=== PATIENT | male | born 1975 | race Caucasian/White ===

== ENCOUNTER 2021-05-27 11:38 | Inpatient (IN) ==
[2021-05-27] MEDS ORDERED: LIDO/EPINEPHRINE/SOD BICARB 20 ML VIAL INFIL ONE (12:09)
--- NOTE | 2021-05-27 12:21 | Emergency Department Note ---
Impression & Plan Cellulitis and abscess of buttock ED Provider Note NAME: ALINA [id number] JOSELYN AGE: 46 SEX: M : 1975 ARRIVES VIA: Walk-In INFORMANT: Patient, ED PROVIDER(S): Manuel Koroma DO CHIEF COMPLAINT: Abscess HPI: The patient is a 46-year-old male who presented to the emergency department for an evaluation of abscess. The patient has bilateral gluteal abscesses. He was seen [facility]. He was started on antibiotics. No attempts were made for incision and drainage although this is unclear why. The patient states that his pain is moderate to severe. He was started on Bactrim without relief. He notices drainage from the right gluteal abscess and minimal drainage from the left iliopsoas. He has had no rectal bleeding or pain. He denies having any abdominal pain nausea or vomiting. ROS: See above HPI for pertinent positives & negatives. A total of 10 systems reviewed and were otherwise negative. PAST MEDICAL HISTORY: See Below PAST SURGICAL HISTORY: See Below FAMILY HISTORY: See Below SOCIAL HISTORY: See Below HOME MEDICATIONS: See Below ALLERGIES: See Below VITALS: See Below PHYSICAL EXAMINATION: GENERAL: Patient is awake alert in no acute distress patient is resting comfortably and showing no signs of anxiety EYES: The conjunctivae are clear. The pupils are round and reactive. EARS, NOSE, MOUTH AND THROAT: The nose is without any evidence of any deformity. NECK: The neck is nontender and supple. RESPIRATORY: Normal respiratory effort is noted there is no evidence of wheezing rhonchi or rales CARDIOVASCULAR: Regular rate and rhythm noted there no murmurs rubs or gallops normal S1 normal S2. GASTROINTESTINAL: The abdomen is soft. Abdomen is nontender. MUSCULOSKELETAL/EXTREMITIES: There is no evidence of gross deformity full range of motion is noted in the hips and shoulders. SKIN: There was bilateral gluteal abscesses noted. The one on the right appears to be in the gluteal cheek. There was no active drainage. The left one appears to be closer to the midline. No active drainage was noted. These are not close to the anus. There was significant surrounding cellulitis noted NEUROLOGIC: Patient is awake alert and oriented x 3. MEDICAL DECISION MAKING: The patient is a 46-year-old male who presented to the emergency department for an evaluation of gluteal abscess. The patient had an I&D in the emergency department but there is not much purulent material expressed. There was significant surrounding cellulitis for this reason CT was obtained to rule out communicating abscess with the GI tract. I discussed the patient's laboratory and radiographic studies with him. He was treated with IV fluids and IV antibiotics in the emergency department. He was reevaluated multiple times. Gi renny the patient's findings I [facility] have agreed to evaluate the patient in the emergency department for further management and disposition. Triage Nursing notes reviewed. Prior medical records reviewed Vital Signs: reviewed and remarkable for tachycardia and fever. Differential diagnosis: Cellulitis, abscess, MRSA infection, DVT, necrotizing fasciitis, dermatitis, drug eruption, allergic reaction, as well as other pathologies. ER treatment provided: See below Diagnostics interpreted by me: ECG: none Laboratory studies: As stated above and show below. Imaging studies: See below Consultation(s): I discussed this case with Dr. Leija who [facility] ED COURSE: Procedures: Incision & Drainage Indication: Abscess. Location: Right and left gluteal region Verbal consent was obtained after the risks and benefits were explained, including but not limited to bleeding, scarring, infection, pain, and bone/joint/nerve damage. At this time, the risks of the procedure are less than the risks of NOT performing the procedure. A time out was taken and the correct patient and site identified. The skin was prepped with betadine and a sterile field set. The wound was anesthetized with 8 ml of 1% lidocaine without epinephrine. The abscess cavity was entered with a number 11 blade and purulent material expressed. Copious irrigation was performed using normal saline. The wound was explored for foreign bodies and none found. Debridement was not perfor med. Packing placed and a sterile dressing applied. Detailed wound care instructions and signs and symptoms of worsening infection reviewed with the patient. No complications and the patient tolerated the procedure well. Past Med/Surg History Medical History (Updated 05/27/21 @ 15:56 by Britney Leija MD) HTN (hypertension), benign Social History Smoking Status: Never smoker Preferred Language: Welsh Feels Safe at Home: Yes Allergies Allergies Allergy/AdvReac Type Severity Reaction Status Date / Time No Known Allergies Allergy Unverified 05/27/21 12:10 Home Meds Home Medications Medication Instructions Recorded Confirmed ibuprofen [Motrin] 600 mg PO TID 05/27/21 05/27/21 lisinopril 40 mg PO QAM 05/27/21 05/27/21 sulfamethoxazole-trimethoprim 1 tab PO BID 05/27/21 05/27/21 [Bactrim DS] Results & Data (ED) Vital Signs Vital Signs - 24 hr 05/27/21 11:40 05/27/21 13:49 05/27/21 14:42 Temperature 37.1 C 37.9 C H Temperature Source Temporal Artery Scan Oral Pulse Rate 113 H 99 H Pulse Rate [Finger] 101 H Pulse Rate from SpO2 Sensor 100 H Pulse Rhythm [Finger] Regular Respiratory Rate 18 18 9 L Respiratory Effort / Characteristics Respiratory Depth Blood Pressure 134/90 Blood Pressure [Left Arm] 140/91 Blood Pressure Mean 104 Blood Pressure Mean [Left Arm] 107 Blood Pressure Position Sitting Blood Pressure Position [Left Arm] Pulse Oximetry 96 100 100 Oxygen Delivery Method Room Air Room Air Sepsis Recent Fever Within 48 Hours No Sepsis New/Unexplained Change in Mental Status No Sepsis Action Taken by Nursing No Action Required 05/27/21 14:46 05/27/21 15:00 05/27/21 15:28 Temperature Temperature Source Pulse Rate 100 H 105 H Pulse Rate [Finger] 108 H Pulse Rate from SpO2 Sensor 98 H 105 H Pulse Rhythm [Finger] Regular Respiratory Rate 19 16 16 Respiratory Effort / Characteristics Non-Labored Spontaneous Respiratory Depth Normal Blood Pressure 135/80 138/95 Blood Pressure [Left Arm] 138/95 Blood Pressure Mean 98 109 Blood Pressure Mean [Left Arm] 109 Blood Pressure Position Blood Pressure Position [Left Arm] Lying Pulse Oximetry 100 100 99 Oxygen Delivery Method Room Air Sepsis Recent Fever Within 48 Hours Sepsis New/Unexplained Change in Mental Status Sepsis Action Taken by Nursing 05/27/21 15:30 Temperature Temperature Source Pulse Rate 101 H Pulse Rate [Finger] Pulse Rate from SpO2 Sensor 101 H Pulse Rhythm [Finger] Respiratory Rate 18 Respiratory Effort / Characteristics Respiratory Depth Blood Pressure Blood Pressure [Left Arm] Blood Pressure Mean Blood Pressure Mean [Left Arm] Blood Pressure Position Blood Pressure Position [Left Arm] Pulse Oximetry 97 Oxygen Delivery Method Sepsis Recent Fever Within 48 Hours Sepsis New/Unexplained Change in Mental Status Sepsis Action Taken by Usp Medications Current Medication List: was personally reviewed by me Laboratory Data Attestation: I reviewed the patient's lab results. Result diagrams: 05/27/21 14:15 05/27/21 14:15 Lab Results 05/27/21 05/27/21 05/27/21 Range/Units 14:15 14:15 14:15 WBC 16.30 H (4.8-10.8) K/uL RBC 4.36 L (4.7-6.1) M/uL Hgb 12.6 L (14.0-18.0) g/dL Hct 36.6 L (42-52) % MCV 83.9 (80-100) fL MCH 28.9 (25-34) pg MCHC 34.4 (32-36) g/dL RDW Std Deviation 39.5 (36.4-46.3) fL RDW Coeff of Katiuska 13.0 (11.5-14.5) % Plt Count 232 (130-400) K/uL MPV 10.2 (7.4-10.4) fL Immature Gran % (Auto) 0.3 % Neut % (Auto) 92.9 % Lymph % (Auto) 3.0 % Bond % (Auto) 3.7 % Eos % (Auto) 0.0 % Baso % (Auto) 0.1 % Neut # (Auto) 15.15 H (1.4-6.5) K/uL Lymph # (Auto) 0.49 L (1.2-3.4) K/uL Bond # (Auto) 0.60 H (0.11-0.59) K/uL Eos # (Auto) 0.00 (0-0.5) K/uL Baso # (Auto) 0.01 (0-0.2) K/uL Immature Gran # (Auto) 0.05 H (0.00-0.02) K/uL ESR (0-15) mm/hr Sodium 135 L (136-145) mmol/L Potassium 4.0 (3.5-5.1) mmol/L Chloride 104 (98-107) mmol/L Carbon Dioxide 27 (21-32) mmol/L Anion Gap 4.0 (3-11) BUN 16 (7-18) mg/dl Creatinine 0.73 (0.6-1.4) mg/dl Est Cr Clr Drug Dosing 139.9 ml/min Est GFR ( Amer) 127.1 ml/min Est GFR (Non-Af Amer) 109.7 ml/min BUN/Creatinine Ratio 21.6 H (10-20) Glucose 109 H (70-99) mg/dl Calcium 8.8 (8.5-10.1) mg/dl Total Bilirubin 0.7 (0.2-1) mg/dl AST 22 (15-37) U/L ALT 17 (12-78) U/L Alkaline Phosphatase 81 (45-117) U/L C-Reactive Protein 25.50 H (0-0.29) mg/dl Total Protein 7.0 (6.4-8.2) gm/dl Albumin 3.6 (3.4-5.0) gm/dl Globulin 3.4 (2.5-4.0) gm/dl Albumin/Globulin Ratio 1.1 (0.9-2) Procalcitonin 2.61 H (0-0.5) ng/ml 05/27/21 Range/Units 14:15 WBC (4.8-10.8) K/uL RBC (4.7-6.1) M/uL Hgb (14.0-18.0) g/dL Hct (42-52) % MCV (80-100) fL MCH (25-34) pg MCHC (32-36) g/dL RDW Std Deviation (36.4-46.3) fL RDW Coeff of Katiuska (11.5-14.5) % Plt Count (130-400) K/uL MPV (7.4-10.4) fL Immature Gran % (Auto) % Neut % (Auto) % Lymph % (Auto) % Bond % (Auto) % Eos % (Auto) % Baso % (Auto) % Neut # (Auto) (1.4-6.5) K/uL Lymph # (Auto) (1.2-3.4) K/uL Bond # (Auto) (0.11-0.59) K/uL Eos # (Auto) (0-0.5) K/uL Baso # (Auto) (0-0.2) K/uL Immature Gran # (Auto) (0.00-0.02) K/uL ESR 25 H (0-15) mm/hr Sodium (136-145) mmol/L Potassium (3.5-5.1) mmol/L Chloride (98-107) mmol/L Carbon Dioxide (21-32) mmol/L Anion Gap (3-11) BUN (7-18) mg/dl Creatinine (0.6-1.4) mg/dl Est Cr Clr Drug Dosing ml/min Est GFR ( Amer) ml/min Est GFR (Non-Af Amer) ml/min BUN/Creatinine Ratio (10-20) Glucose (70-99) mg/dl Calcium (8.5-10.1) mg/dl Total Bilirubin (0.2-1) mg/dl AST (15-37) U/L ALT (12-78) U/L Alkaline Phosphatase (45-117) U/L C-Reactive Protein (0-0.29) mg/dl Total Protein (6.4-8.2) gm/dl Albumin (3.4-5.0) gm/dl Globulin (2.5-4.0) gm/dl Albumin/Globulin Ratio (0.9-2) Procalcitonin (0-0.5) ng/ml Administered Medications Discontinued Medications Sodium Chloride (Nss 1000ml) 1,000 mls @ 999 mls/hr IV .Q1H1M STA Stop: 05/27/21 14:41 Last Admin: 05/27/21 14:28 Dose: 999 mls/hr Documented by: [id number] Ceftriaxone Sodium (Rocephin) 1,000 mg in 50 mls @ 100 mls/hr IV NOW STA Stop: 05/27/21 14:10 Last Admin: 05/27/21 14:28 Dose: 100 mls/hr Documented by: [id number] Ioversol (Optiray 320 100ml) 94 ml IV ONCE ONE Stop: 05/27/21 15:19 Last Admin: 05/27/21 15:18 Dose: 94 ml Documented by: [id number] Lidocaine/Epinephrine (Lido/Epinephrine/Sod Bicarb 20 Ml Vial) 20 ml INFIL NOW ONE Stop: 05/27/21 12:10 Last Admin: 05/27/21 12:25 Dose: 20 ml Documented by: [id number] Morphine Sulfate (Morphine Sulfate 4 Mg/Ml 1 Ml Carp\Vial) 4 mg IV NOW STA Stop: 05/27/21 13:44 Last Admin: 05/27/21 14:29 Dose: 4 mg Documented by: [id number] Ondansetron HCl (Ondansetron Inj 2 Mg/Ml 2 Ml Vial) 4 mg IV NOW STA Stop: 05/27/21 13:44 Last Admin: 05/27/21 14:29 Dose: 4 mg Documented by: [id number] Oxycodone HCl (Oxycodone Hcl Ir 5 Mg Tab (Immediate Release)) 5 mg PO NOW STA Stop: 05/27/21 12:26 Last Admin: 05/27/21 12:28 Dose: 5 mg Documented by: [id number] Imaging Data Radiologist's Impression: Pelvis CT 05/27/21 13:41 CT pelvis w/IV con only CLINICAL HISTORY: Gluteal swelling COMPARISON STUDY: No previous studies for comparison. FINDINGS: The patient was scanned in a dynamic helical fashion during intravenous administration of 94 cc of Optiray 320. The patient was unable to lie on his back was scanned prone. A dose reduction [place] was utilized according the principles of ALARA. Visualized appears normal. There is no evidence of acute diverticulitis. There is no pelvic ascites. There is no pathologic pelvic lymphadenopathy. There is infiltration of both gluteal fold right greater than left. There is a 4 mm skin ulceration involving the right gluteal fold. The findings are consistent with a cellulitis. There are no fluid collections to indicate a drainable abscess. IMPRESSION: 1. Infiltration of the fat involving both gluteal fold with overlying skin thickening. The findings are consistent with a bilateral gluteal cellulitis right more severe than left 2. 4 mm skin ulceration involving the right gluteal fold 3. No evidence of drainable abscess 4. Normal appendix. No evidence of acute diverticulitis. ACT 112: Negative or not required by law. Electronically signed by: Vinnie Stein M.D. 05/27/2021 3:30 PM Discharge Plan Visit Data Chief Complaint: Infection, Wound Stated Complaint: HYPERTENSION ED Provider: Manuel Koroma Discharge Problem: Cellulitis and abscess of buttock Patient Disposition: Being Evaluated by Hospitalist Condition: Good Forms Stand Alone Forms: [facility] [employer] Prescriptions Prescriptions: No Action sulfamethoxazole-trimethoprim [Bactrim DS] 800-160 mg Tablet 1 tab PO BID RF: 0 ibuprofen [Motrin] 600 mg Tablet 600 mg PO TID RF: 0 lisinopril 40 mg Tablet 40 mg PO QAM RF: 0 Referrals Referrals: Zane PERALTA [Primary Care Provider] -
[2021-05-27] MEDS ORDERED: oxyCODONE HCL IR 5 MG TAB (IMMEDIATE RELEASE) PO STA (12:25)
[2021-05-27] MEDS ORDERED: SODIUM CHLORIDE 0.9% 1000ML 1,000 ML IV STA (13:41)
[2021-05-27] MEDS ORDERED: cefTRIAXone SODIUM 1,000 MG/50 ML BAG IV STA (13:41)
[2021-05-27] MEDS ORDERED: MoRPHine SULFATE 4 MG/ML 1 ML CARP\\VIAL IV STA (13:43)
[2021-05-27] MEDS ORDERED: ONDANSETRON INJ 2 MG/ML 2 ML VIAL IV STA (13:43)
[2021-05-27 14:26] LABS: Basophils # (auto) 0.01 K/uL (0-0.2); Basophils % (auto) 0.1 %; Hematocrit (blood only) 36.6 % (42-52); Hemoglobin 12.6 g/dL (14.0-18.0); Immature Granulocytes # (auto) 0.05 K/uL (0.00-0.02); Immature Granulocytes % (auto) 0.3 %; Lymphocytes # (auto) 0.49 K/uL (1.2-3.4); Mean Corpuscular Hemoglobin 28.9 pg (25-34); Mean Corpuscular Hgb Conc 34.4 g/dL (32-36); Mean Corpuscular Volume 83.9 fL (80-100); Mean Platelet Volume 10.2 fL (7.4-10.4); Monocytes % (auto) 3.7 %; Neutrophils # (auto) 15.15 K/uL (1.4-6.5); Neutrophils % (auto) 92.9 %; Platelet Count 232 K/uL (130-400); RDW Standard Deviation 39.5 fL (36.4-46.3); Red Blood Count 4.36 M/uL (4.7-6.1)
[2021-05-27 14:43] LABS: Albumin Level 3.6 gm/dl (3.4-5.0); BUN Creatinine Ratio 21.6 (10-20); Calcium 8.8 mg/dl (8.5-10.1); Creatinine Clr Calc Pharmacy 139.9 ml/min; Est GFR (African American) 127.1 ml/min; Est GFR (Non-African American) 109.7 ml/min
[2021-05-27 14:51] LABS: Albumin Globulin Ratio 1.1 (0.9-2); Bilirubin,Total 0.7 mg/dl (0.2-1); C Reactive Protein 25.5 mg/dl (0-0.29); Globulin 3.4 gm/dl (2.5-4.0)
[2021-05-27] MEDS ORDERED: OPTIRAY 320 100ml IV ONE (15:18)
--- NOTE | 2021-05-27 15:32 | CT Scan Report ---
CT pelvis w/IV con only CLINICAL HISTORY: Gluteal swelling COMPARISON STUDY: No previous studies for comparison. FINDINGS: The patient was scanned in a dynamic helical fashion during intravenous administration of 9 4 cc of Optiray 320. The patient was unable to lie on his back was scanned prone. A dose reduction [place] was utilized according the principles of ALARA. Visualized appears normal. There is no evidence of acute diverticulitis. There is no pelvic ascites. There is no pathologic pelvic lymphadenopathy. There is infiltration of both gluteal fold right greater than left. There is a 4 mm skin ulceration i nvolving the right gluteal fold. The findings are consistent with a cellulitis. There are no fluid co llections to indicate a drainable abscess. IMPRESSION: 1. Infiltration of the fat involving both gluteal fold with overlying skin thickening. The findings a re consistent with a bilateral gluteal cellulitis right more severe than left 2. 4 mm skin ulceration involving the right gluteal fold 3. No evidence of drainable abscess 4. Normal appendix. No evidence of acute diverticulitis. ACT 112: Negative or not required by law. Electronically signed by: Vinnie Stein M.D. 05/27/2021 3:30 PM
[2021-05-27] MEDS ORDERED: VANCOMYCIN HCL 1,750 MG in SODIUM CHLORIDE 0.9% 500 ML IV ONE (15:40)
[2021-05-27] MEDS ORDERED: VANCOMYCIN CONSULT ACTIVE PRN ×3 (15:40→20:48)
--- NOTE | 2021-05-27 15:57 | History & Physical Report ---
Date of Service May 27, 2021 Assessment & Plan (1) Cellulitis and abscess of buttock: Presents with tachycardia, fever, leukocytosis, and bilateral gluteal abscesses and cellulitis as the source of sepsis No personal history of MRSA but does reside in a custodial and is at high risk for MRSA infection I&D performed of bilateral abscesses in the ER with wound culture sent from the left abscess-Gram stain with moderate GPC Failed outpatient Bactrim at the custodial. CRP, ESR, and procalcitonin are all elevated. -Bring in on observation to medical/surgical floor -Continue IV vancomycin which will cover for staph and strep given GPC on culture -He was given 1 dose of IV ceftriaxone in the ER, but most likely he does not need gram-negative coverage-if he is not improving by tomorrow, could consider restarting gram-negative coverage -Continue wound care to change dressing over wounds when saturated -Consult general surgery in case of need for further incision and drainage over the next 1 to 2 days if increased fluctuance develops -Pain control with Tylenol, ibuprofen, and oxycodone as needed -Follow wound culture -Ordered blood cultures-antibiotics were given prior to blood cultures being drawn (2) Sepsis: Secondary to cellulitis and abscesses of the buttocks as above Blood pressures are normal but has leukocytosis, tachycardia, fever here. Continue normal saline at 125 mL's per hour x2 L -Follow wound and blood cultures as above -Continue antibiotics as above Tylenol as needed for fever (3) HTN (hypertension), benign: Blood pressures here are normal Continue home lisinopril (4) Nausea & vomiting: Likely secondary to sepsis Does seem to be improved currently as he is feeling hungry Antiemetics with Zofran as needed Continue IV fluids (5) Hyponatremia: Mild, sodium 135 upon admission Likely secondary to dehydration in the setting of nausea/vomiting and sepsis with fevers Getting normal saline and repeat BMP in the morning (6) Family history of prostate cancer: Patient with strong family history and multiple family members on his father side of prostate cancer No mention of prostamegaly on pelvic CT here, but he does describe some chronic issues with urination and feels like his prostate is enlarged upon sitting We will check PSA in the morning at his request however this may be falsely elevated in the setting of infection Should have regular follow-up with PCP and/or urology as an outpatient (7) DVT prophylaxis: Lovenox SQ Disposition-meets criteria for observation, admit to medical/surgical floor History of Present Illness Chief Complaint: Buttocks pain Primary Care Provider: KATHRYN Degroot This patient is a 46-year-old male with a history of hypertension who presents to the ER from the custodial for evaluation of bilateral gluteal abscesses. He reports first noticing pimple-like areas on the bilateral buttocks 4 days ago, but then he started having fevers and chills for the last 2 days and significantly worsening pain in the buttocks. He also felt like the pain was spreading up to his right kidney and he was worried about sepsis. He reports nausea and vomiting all day yesterday and was not able to keep anything down. He has not had a bowel movement in 2 days and no diarrhea. He reports his urine output dropped off in the last 24 hours as well. He was seen at the [facility] and started on Bactrim but had not yet had an incision and drainage. He was having moderate to severe pain. He has noticed drainage from the right gluteal abscess and minimal drainage from the left. He denies rectal bleeding or pain. He has no personal history of MRSA or previous skin infections/abscesses. In the ER, he was found to have fever, leukocytosis, elevated CRP, mild hyponatremia, and procalcitonin elevated at 2.61. Attempts were made to I&D the abscesses in the ER and a small amount of pus was drained from the left gluteal abscess. He was also noted by the ER physician to have significant surrounding cellulitis. A pelvic CT was performed and showed infiltration of the fat involving both gluteal folds with overlying skin thickening consistent with bilateral gluteal cellulitis right greater than left, also with a 4 mm skin ulceration involving the right gluteal fold, but no drainable abscess noted. His appendix was noted to be normal and no evidence of acute diverticulitis. In the ER, he was given IV ceftriaxone and IV vancomycin as well as oxycodone as well as morphine for pain and Zofran for nausea. He was also given 1 L of normal saline. His blood pressure was normal but he was mildly tachycardic. He will be admitted for sepsis secondary to gluteal abscesses with cellulitis. Allergies Allergy/AdvReac Type Severity Reaction Status Date / Time No Known Allergies Allergy Unverified 05/27/21 12:10 Home Medications Medication Instructions Recorded Confirmed Type ibuprofen [Motrin] 600 mg PO TID 05/27/21 05/27/21 History lisinopril 40 mg PO QAM 05/27/21 05/27/21 History sulfamethoxazole-trimethoprim 1 tab PO BID 05/27/21 05/27/21 History [Bactrim DS] Past Med/Surg History Medical History (Updated 05/27/21 @ 17:12 by Britney Leija MD) Family history of prostate cancer HTN (hypertension), benign Surgical History (Updated 05/27/21 @ 17:01 by Britney Leija MD) No significant past surgical history Family History (Updated 05/27/21 @ 17:02 by Britney Leija MD) Father Prostate cancer Grandfather (Paternal) Prostate cancer Social History (Updated 05/27/21 @ 17:02 by Britney Leija MD) Smoking Status: Never smoker Hx Alcohol Use: No Preferred Language: Kiswahili Current Living Situation Comment: Prisoner Feels Safe at Home: Yes Review of Systems Review of Systems: All systems reviewed & are unremarkable except as noted in HPI & below Reports concern for enlarged prostate as he often feels like he is "sitting on a rock" when he sits down. Reports some difficulty to get his urine out at times. Requesting testing of his prostate to screen for cancer given strong family history of prostate cancer. Had some mild brief right-sided chest pain yesterday but was also having chills at the time. Also had some shortness of breath yesterday which is now resolved. Nausea and vomiting yesterday as per HPI along with fevers and chills. Also with some lightheadedness which is now improving. Physical Exam Constitutional: WD/WN, vitals as above Eyes: PERRL, conjunctivae normal, anicteric sclerae ENMT: external ear and nose normal, oropharynx normal Neck: trachea midline, no thyromegaly Respiratory: normal respiratory effort, lungs clear to auscultation Cardiovascular: RRR, no murmur, no edema Chest (Breasts): Chest: normal inspection of chest Gastrointestinal (Abdomen): normal bowel sounds, soft, nontender, no hepat osplenomegaly Musculoskeletal: Extremities: extremities normal to inspection; no cyanosis and no clubbing Skin: Right medial gluteus with large area of erythema and significant induration approximately 8 cm in diameter with central incision now open and draining purulent material and tender to the touch with warmth. Left medial gluteus also with large area of significant induration with incised open area draining blood and pus, with another small 2 mm white pustule more caudally, also tender to the touch Neurologic: moves all extremities and awake; no focal motor deficits Psychiatric: A+Ox3, euthymic affect Lymphatic: no lymphedema Results & Data Results & Data ([facility]) Vital Signs (Past 12 Hours) Vital Signs Temp Pulse Pulse Resp BP BP Pulse Ox 05/27/21 15:30 101 H 18 97 05/27/21 15:28 108 H 16 138/95 99 05/27/21 15:00 105 H 16 138/95 100 05/27/21 14:46 100 H 19 135/80 100 05/27/21 14:42 99 H 9 L 100 05/27/21 13:49 37.9 C H 101 H 18 140/91 100 05/27/21 11:40 37.1 C 113 H 18 134/90 96 Laboratory Results 05/27/21 05/27/21 05/27/21 Range/Units 14:15 14:15 14:15 WBC (4.8-10.8) K/uL RBC (4.7-6.1) M/uL Hgb (14.0-18.0) g/dL Hct (42-52) % MCV (80-100) fL MCH (25-34) pg MCHC (32-36) g/dL RDW Std Deviation (36.4-46.3) fL RDW Coeff of [place] (11.5-14.5) % Plt Count (130-400) K/uL MPV (7.4-10.4) fL Immature Gran % (Auto) % Neut % (Auto) % Lymph % (Auto) % [place] % (Auto) % Eos % (Auto) % Baso % (Auto) % Neut # (Auto) (1.4-6.5) K/uL Lymph # (Auto) (1.2-3.4) K/uL [place] # (Auto) (0.11-0.59) K/uL Eos # (Auto) (0-0.5) K/uL Baso # (Auto) (0-0.2) K/uL Immature Gran # (Auto) (0.00-0.02) K/uL ESR 25 H (0-15) mm/hr Sodium 135 L (136-145) mmol/L Potassium 4.0 (3.5-5.1) mmol/L Chloride 104 (98-107) mmol/L Carbon Dioxide 27 (21-32) mmol/L Anion Gap 4.0 (3-11) BUN 16 (7-18) mg/dl Creatinine 0.73 (0.6-1.4) mg/dl Est Cr Clr Drug Dosing 139.9 ml/min Est GFR ( Amer) 127.1 ml/min Est GFR (Non-Af Amer) 109.7 ml/min BUN/Creatinine Ratio 21.6 H (10-20) Glucose 109 H (70-99) mg/dl Calcium 8.8 (8.5-10.1) mg/dl Total Bilirubin 0.7 (0.2-1) mg/dl AST 22 (15-37) U/L ALT 17 (12-78) U/L Alkaline Phosphatase 81 (45-117) U/L C-Reactive Protein 25.50 H (0-0.29) mg/dl Total Protein 7.0 (6.4-8.2) gm/dl Albumin 3.6 (3.4-5.0) gm/dl Globulin 3.4 (2.5-4.0) gm/dl Albumin/Globulin Ratio 1.1 (0.9-2) Procalcitonin 2.61 H (0-0.5) ng/ml 05/27/21 Range/Units 14:15 WBC 16.30 H (4.8-10.8) K/uL RBC 4.36 L (4.7-6.1) M/uL Hgb 12.6 L (14.0-18.0) g/dL Hct 36.6 L (42-52) % MCV 83.9 (80-100) fL MCH 28.9 (25-34) pg MCHC 34.4 (32-36) g/dL RDW Std Deviation 39.5 (36.4-46.3) fL RDW Coeff of [place] 13.0 (11.5-14.5) % Plt Count 232 (130-400) K/uL MPV 10.2 (7.4-10.4) fL Immature Gran % (Auto) 0.3 % Neut % (Auto) 92.9 % Lymph % (Auto) 3.0 % [place] % (Auto) 3.7 % Eos % (Auto) 0.0 % Baso % (Auto) 0.1 % Neut # (Auto) 15.15 H (1.4-6.5) K/uL Lymph # (Auto) 0.49 L (1.2-3.4) K/uL [place] # (Auto) 0.60 H (0.11-0.59) K/uL Eos # (Auto) 0.00 (0-0.5) K/uL Baso # (Auto) 0.01 (0-0.2) K/uL Immature Gran # (Auto) 0.05 H (0.00-0.02) K/uL ESR (0-15) mm/hr Sodium (136-145) mmol/L Potassium (3.5-5.1) mmol/L Chloride (98-107) mmol/L Carbon Dioxide (21-32) mmol/L Anion Gap (3-11) BUN (7-18) mg/dl Creatinine (0.6-1.4) mg/dl Est Cr Clr Drug Dosing ml/min Est GFR ( Amer) ml/min Est GFR (Non-Af Amer) ml/min BUN/Creatinine Ratio (10-20) Glucose (70-99) mg/dl Calcium (8.5-10.1) mg/dl Total Bilirubin (0.2-1) mg/dl AST (15-37) U/L ALT (12-78) U/L Alkaline Phosphatase (45-117) U/L C-Reactive Protein (0-0.29) mg/dl Total Protein (6.4-8.2) gm/dl Albumin (3.4-5.0) gm/dl Globulin (2.5-4.0) gm/dl Albumin/Globulin Ratio (0.9-2) Procalcitonin (0-0.5) ng/ml Diagnostic Findings Pelvis CT 05/27/21 13:41 CT pelvis w/IV con only CLINICAL HISTORY: Gluteal swelling COMPARISON STUDY: No previous studies for comparison. FINDINGS: The patient was scanned in a dynamic helical fashion during intravenous administration of 94 cc of Optiray 320. The patient was unable to lie on his back was scanned prone. A dose reduction [place] was utilized according the principles of ALARA. Visualized appears normal. There is no evidence of acute diverticulitis. There is no pelvic ascites. There is no pathologic pelvic lymphadenopathy. There is infiltration of both gluteal fold right greater than left. There is a 4 mm skin ulceration involving the right gluteal fold. The findings are consistent with a cellulitis. There are no fluid collections to indicate a drainable abscess. IMPRESSION: 1. Infiltration of the fat involving both gluteal fold with overlying skin thickening. The findings are consistent with a bilateral gluteal cellulitis right more severe than left 2. 4 mm skin ulceration involving the right gluteal fold 3. No evidence of drainable abscess 4. Normal appendix. No evidence of acute diverticulitis. ACT 112: Negative or not required by law. Electronically signed by: Vinnie Stein M.D. 05/27/2021 3:30 PM Code Status & VTE Plan Code Status Full code VTE Prophylaxis Plan VTE Prophylaxis will be ordered: Yes PG Care Time/CCT Total # of Minutes Spent Total Time Spent with Patient: Total time spent is greater than 50% in coordination of care (as documented) at patient's floor/unit and/or counseling patient: Coding Level of Care Code 80611 OBS Care - Level 3 Diagnoses Cellulitis and abscess of buttock L02.31; L03.317 Sepsis A41.9 HTN (hypertension), benign I10 Nausea & vomiting R11.2 Hyponatremia E87.1 Family history of prostate cancer Z80.42 DVT prophylaxis Z29.9
--- NOTE | 2021-05-27 17:22 | Surgery Consultation ---
Date of Consultation May 27, 2021 Assessment & Plan (1) Cellulitis and abscess of buttock: pt is a 46 year-old male who presents to Er withn 4 days history bilateral gluteal pain with fever, IMP: bilateral gluteal cellulitis with abscess, plan, I recommend to do I/d bilateral gluteal abscess, D/W benefits, risks and alternatives of the surgery, the risks - infection, bleeding, sepsis, multiple organs failure, recurrence, pt understood, he agree with the surgery,He signed informed consent, I answered all questions, pre-op antibiotic, Present on Admission?: Yes History of Present Illness History of Present Illness History of Present Illness Chief Complaint: Buttocks pain Primary Care Provider: KATHRYN Degroot This patient is a 46-year-old male with a history of hypertension who presents to the ER from the [facility] for evaluation of bilateral gluteal abscesses. He reports first noticing pimple-like areas on the bilateral buttocks 4 days ago, but then he started having fevers and chills for the last 2 days and significantly worsening pain in the buttocks. He also felt like the pain was spreading up to his right kidney and he was worried about sepsis. He reports nausea and vomiting all day yesterday and was not able to keep anything down. He has not had a bowel movement in 2 days and no diarrhea. He reports his urine output dropped off in the last 24 hours as well. He was seen at the [facility] and started on Bactrim but had not yet had an incision and drainage. He was having moderate to severe pain. He has noticed drainage from the right gluteal abscess and minimal drainage from the left. He denies rectal bleeding or pain. He has no personal history of MRSA or previous skin infections/abscesses. In the ER, he was found to have fever, leukocytosis, elevated CRP, mild hyponatremia, and procalcitonin elevated at 2.61. Attempts were made to I&D the abscesses in the ER and a small amount of pus was drained from the left gluteal abscess. He was also noted by the ER physician to have significant surrounding cellulitis. A pelvic CT was performed and showed infiltration of the fat involving both gluteal folds with overlying skin thickening consistent with bilateral gluteal cellulitis right greater than left, also with a 4 mm skin ulceration involving the right gluteal fold, but no drainable abscess noted. His appendix was noted to be normal and no evidence of acute diverticulitis. In the ER, he was given IV ceftriaxone and IV vancomycin as well as oxycodone as well as morphine for pain and Zofran for nausea. He was also given 1 L of normal saline. His blood pressure was normal but he was mildly tachycardic. He will be admitted for sepsis secondary to gluteal abscesses with cellulitis. I ( Obinna Mace MD ) got a consult for bilateral gluteal abscess, I reviewed pt's H/P, labs, CT scan with pt, Allergies Allergy/AdvReac Type Severity Reaction Status Date / Time No Known Allergies Allergy Unverified 05/27/21 12:10 Home Medications Medication Instructions Recorded Confirmed Type ibuprofen [Motrin] 600 mg PO TID 05/27/21 05/27/21 History lisinopril 40 mg PO QAM 05/27/21 05/27/21 History sulfamethoxazole-trimethoprim 1 tab PO BID 05/27/21 05/27/21 History [Bactrim DS] Past Med/Surg History Medical History (Updated 05/27/21 @ 17:12 by Britney Leija MD) Family history of prostate cancer HTN (hypertension), benign Surgical History (Updated 05/27/21 @ 17:01 by Britney Leija MD) No significant past surgical history Family History (Updated 05/27/21 @ 17:02 by Britney Leija MD) Father Prostate cancer Grandfather (Paternal) Prostate cancer Social History (Updated 05/27/21 @ 17:02 by Britney Leija MD) Smoking Status: Never smoker Hx Alcohol Use: No Preferred Language: Samoan Current Living Situation Comment: Prisoner Feels Safe at Home: Yes Review of Systems Review of Systems: All systems reviewed & are unremarkable except as noted in HPI & below Reports concern for enlarged prostate as he often feels like he is "sitting on a rock" when he sits down. Reports some difficulty to get his urine out at times. Requesting testing of his prostate to screen for cancer given strong family history of prostate cancer. Had some mild brief right-sided chest pain yesterday but was also having chills at the time. Also had some shortness of breath yesterday which is now resolved. Nausea and vomiting yesterday as per HPI along with fevers and chills. Also with some lightheadedness which is now improving. Allergies Allergy/AdvReac Type Severity Reaction Status Date / Time No Known Allergies Allergy Unverified 05/27/21 12:10 Home Medications Medication Instructions Recorded Confirmed Type ibuprofen [Motrin] 600 mg PO TID 05/27/21 05/27/21 History lisinopril 40 mg PO QAM 05/27/21 05/27/21 History sulfamethoxazole-trimethoprim 1 tab PO BID 05/27/21 05/27/21 History [Bactrim DS] Patient History Medical History (Updated 05/27/21 @ 17:12 by Britney Leija MD) Family history of prostate cancer HTN (hypertension), benign Surgical History (Updated 05/27/21 @ 17:01 by Britney Leija MD) No significant past surgical history Family History (Updated 05/27/21 @ 17:02 by Britney Leija MD) Father Prostate cancer Grandfather (Paternal) Prostate cancer Social History (Updated 05/27/21 @ 17:02 by Britney Leija MD) Smoking Status: Never smoker Hx Alcohol Use: No Preferred Language: Samoan Current Living Situation Comment: Prisoner Feels Safe at Home: Yes Physical Exam Constitutional: WD/WN, vitals as above well developed and well nourished Eyes: PERRL, conjunctivae normal, anicteric sclerae ENMT: external ear and nose normal, oropharynx normal Neck: trachea midline, no thyromegaly Respiratory: normal respiratory effort, lungs clear to auscultation normal respiratory effort Cardiovascular: RRR, no murmur, no edema Rate/Rhythm: regular rate and regular rhythm Gastrointestinal (Abdomen): normal bowel sounds, soft, nontender, no hepatosplenomegaly Percussion/Palpation: abdomen soft tenderness and redness on bilateral gluteal, size about [id number] each, some necrotic tissue on right side gluteal area, size about 2x2cm, 2 0.5cm incision on bilateral gluteal area, no drainage now, Musculoskeletal: no cyanosis or clubbing, extremities motor strength 5/5 Skin: tenderness and redness on bilateral gluteal, size about [id number] each, some necrotic tissue on right side gluteal area, size about 2x2cm, 2 0.5cm incision on bilateral gluteal area, no drainage now, Neurologic: awake Psychiatric: Orientation: alert and oriented x 3 Results & Data ([facility]) Vital Signs (Past 12 Hours) Vital Signs Temp Pulse Pulse Resp BP BP Pulse Ox 05/27/21 16:30 99 H 20 140/70 98 05/27/21 16:07 110 H 23 133/76 05/27/21 16:06 109 H 18 05/27/21 15:30 101 H 18 97 05/27/21 15:28 108 H 16 138/95 99 05/27/21 15:00 105 H 16 138/95 100 05/27/21 14:46 100 H 19 135/80 100 05/27/21 14:42 99 H 9 L 100 05/27/21 13:49 37.9 C H 101 H 18 140/91 100 05/27/21 11:40 37.1 C 113 H 18 134/90 96 Laboratory Results Abnormal lab results 05/27/21 05/27/21 05/27/21 Range/Units 14:15 14:15 14:15 WBC 16.30 H (4.8-10.8) K/uL RBC 4.36 L (4.7-6.1) M/uL Hgb 12.6 L (14.0-18.0) g/dL Hct 36.6 L (42-52) % Neut # (Auto) 15.15 H (1.4-6.5) K/uL Lymph # (Auto) 0.49 L (1.2-3.4) K/uL [place] # (Auto) 0.60 H (0.11-0.59) K/uL Immature Gran # (Auto) 0.05 H (0.00-0.02) K/uL ESR (0-15) mm/hr Sodium 135 L (136-145) mmol/L BUN/Creatinine Ratio 21.6 H (10-20) Glucose 109 H (70-99) mg/dl C-Reactive Protein 25.50 H (0-0.29) mg/dl Procalcitonin 2.61 H (0-0.5) ng/ml 05/27/21 Range/Units 14:15 WBC (4.8-10.8) K/uL RBC (4.7-6.1) M/uL Hgb (14.0-18.0) g/dL Hct (42-52) % Neut # (Auto) (1.4-6.5) K/uL Lymph # (Auto) (1.2-3.4) K/uL [place] # (Auto) (0.11-0.59) K/uL Immature Gran # (Auto) (0.00-0.02) K/uL ESR 25 H (0-15) mm/hr Sodium (136-145) mmol/L BUN/Creatinine Ratio (10-20) Glucose (70-99) mg/dl C-Reactive Protein (0-0.29) mg/dl Procalcitonin (0-0.5) ng/ml CT pelvis w/IV con only CLINICAL HISTORY: Gluteal swelling COMPARISON STUDY: No previous studies for comparison. FINDINGS: The patient was scanned in a dynamic helical fashion during intravenous administration of 94 cc of Optiray 320. The patient was unable to lie on his back was scanned prone. A dose reduction technique was utilized according the principles of ALARA. Visualized appears normal. There is no evidence of acute diverticulitis. There is no pelvic ascites. There is no pathologic pelvic lymphadenopathy. There is infiltration of both gluteal fold right greater than left. There is a 4 mm skin ulceration involving the right gluteal fold. The findings are consistent with a cellulitis. There are no fluid collections to indicate a drainable abscess. IMPRESSION: 1. Infiltration of the fat involving both gluteal fold with overlying skin thickening. The findings are consistent with a bilateral gluteal cellulitis right more severe than left 2. 4 mm skin ulceration involving the right gluteal fold 3. No evidence of drainable abscess 4. Normal appendix. No evidence of acute diverticulitis.
--- NOTE | 2021-05-27 17:32 | History & Physical Bridge Note ---
Date of Service May 27, 2021 History & Physical Bridge Note I have examined the patient, reviewed the History & Physical and in the interval since the performance of the History & Physical I have noted the following changes of clinical significance: no changes noted
--- NOTE | 2021-05-27 18:33 | Anesthesiology Consultation ---
Date of Service May 27, 2021 Assessment & Plan (1) Encounter for pre-operative examination: Chart Review Chart Review: cut order hand initiated History Surgery Operation Date: 05/27/21 18:45 Proposed Procedures p Incision and Drainage General - Obinna Mace MD Height/Weight Height: 6 ft 1 in Weight: 88.3 kg Allergies Allergy/AdvReac Type Severity Reaction Status Date / Time No Known Allergies Allergy Unverified 05/27/21 12:10 Medications Home Medications Medication Instructions Recorded Confirmed Last Taken ibuprofen [Motrin] 600 mg PO TID 05/27/21 05/27/21 05/27/21 lisinopril 40 mg PO QAM 05/27/21 05/27/21 05/27/21 sulfamethoxazole-trimethoprim 1 tab PO BID 05/27/21 05/27/21 05/27/21 [Bactrim DS] Past Medical History Medical History Family history of prostate cancer HTN (hypertension), benign Past Family History Family History Father Prostate cancer Grandfather (Paternal) Prostate cancer Past Surgical History Surgical History No significant past surgical history Social History Smoking Status: Never smoker Hx Alcohol Use: No Physical Exam Vital Signs Last Vital Signs Temp 100.2 F H 05/27/21 13:49 Pulse 103 H 05/27/21 18:00 Resp 13 05/27/21 17:30 BP 148/86 H 05/27/21 18:00 Pulse Ox 99 05/27/21 17:30 Testing Laboratory Results 05/27/21 14:15 05/27/21 14:15 05/27/21 13:45 Gram Stain - Final Sacrum Laboratory Tests 05/27/21 16:00 SARS-CoV-2 (PCR) NEGATIVE
[2021-05-27] MEDS ORDERED: BUPIVACAINE 0.5 % 5 MG/1 ML MPF 30ML VIAL ONE (18:41)
[2021-05-27] MEDS ORDERED: LIDOCAINE 1% LOCAL 20 ML VIAL ONE (18:41)
[2021-05-27] MEDS ORDERED: BACITRACIN OINT 15 GM TUBE ONE (18:41)
[2021-05-27] MEDS ORDERED: ATROPINE SULFATE 0.1 MG/ML 10ML SYR IV PRN (19:11)
[2021-05-27] MEDS ORDERED: PROMETHAZINE HCL 6.25 MG in SODIUM CHLORIDE 0.9% 50 ML IV PRN (19:11)
[2021-05-27] MEDS ORDERED: fentaNYL citrate 100 MCG/2 ML VIAL IV PRN (19:11)
[2021-05-27] MEDS ORDERED: ONDANSETRON INJ 2 MG/ML 2 ML VIAL IV PRN ×2 (19:11→20:48)
[2021-05-27] MEDS ORDERED: ePHEDrine sulfate 50 MG/ML AMP IV PRN (19:11)
[2021-05-27] MEDS ORDERED: fentaNYL citrate 100 MCG/2 ML VIAL ONE (19:16)
[2021-05-27] MEDS ORDERED: DEXAMETHASONE SOD INJ 4 MG/ML VIAL ONE (19:47)
[2021-05-27] MEDS ORDERED: PROPOFOL IV EMULSION 10 MG/ML 20 ML VIAL IV ONE (19:47)
[2021-05-27] MEDS ORDERED: KETOROLAC 30 MG/ML VIAL ONE (19:47)
[2021-05-27] MEDS ORDERED: LIDOCAINE 2% 2 ML VIAL/AMP(20MG/ML) INFIL ONE (19:47)
[2021-05-27] MEDS ORDERED: ONDANSETRON INJ 2 MG/ML 2 ML VIAL ONE (19:47)
[2021-05-27] MEDS ORDERED: SUCCINYLCHOLINE CHLORIDE 20 MG/ML 10 ML VIAL IV ONE (19:47)
--- NOTE | 2021-05-27 19:48 | Post Operative Brief Note ---
Immediate Post Op Note v1 Date of Surgery May 27, 2021 Pre & Post Diagnosis Operation Date: 05/27/21 18:45 Pre-op diagnosis: bilateral gluteal abscess post-op diagnosis: bilateral gluteal abscess I identified the patient and participated in the time-out.: Yes Procedure Operation Date: 05/27/21 18:45 incision and drainage bilateral gluteal abscess Surgeon Obinna Mace MD [employer] Specialist nursing surgical services director Estimated Blood Loss 5 Findings Consistent with Post-Op Diagnosis bilateral gluteal abscess, wound culture sent Fluids 500ml Specimens none Drains Other (packing the wounds) Anesthesia Type General Complications none Disposition Accompanied Patient To Recovery: Yes Disposition: Recovery Room Overlapping Procedure I was immediately available: during the entire case.
[2021-05-27] MEDS ORDERED: oxyCODONE/ACETAMINOPHEN 5mg/325mg TAB PO PRN (19:55)
[2021-05-27] MEDS ORDERED: PIPERACILL/TAZOBAC CONSULT ACTIVE PRN (20:07)
[2021-05-27] MEDS ORDERED: VANCOMYCIN HCL 1,000 MG in SODIUM CHLORIDE 0.9% 250 ML IV SCH (20:15)
--- NOTE | 2021-05-27 20:18 | Anesthesiology Progress Note ---
Date of Service May 27, 2021 Anesthesia Post Procedure Vital Signs Vital Signs: Temp Pulse Pulse Pulse Resp BP BP 05/27/21 20:15 102 H 16 139/71 05/27/21 20:05 37.7 C H 112 H 16 117/69 05/27/21 18:00 103 H 148/86 H 05/27/21 17:30 105 H 13 138/90 05/27/21 17:00 101 H 29 H 156/77 H 05/27/21 16:30 99 H 20 140/70 05/27/21 16:07 110 H 23 133/76 05/27/21 16:06 109 H 18 05/27/21 15:30 101 H 18 05/27/21 15:28 108 H 16 138/95 05/27/21 15:00 105 H 16 138/95 05/27/21 14:46 100 H 19 135/80 05/27/21 14:42 99 H 9 L 05/27/21 13:49 37.9 C H 101 H 18 140/91 05/27/21 11:40 37.1 C 113 H 18 134/90 Pulse Ox 05/27/21 20:15 99 05/27/21 20:05 97 05/27/21 18:00 05/27/21 17:30 99 05/27/21 17:00 98 05/27/21 16:30 98 05/27/21 16:07 05/27/21 16:06 05/27/21 15:30 97 05/27/21 15:28 99 05/27/21 15:00 100 05/27/21 14:46 100 05/27/21 14:42 100 05/27/21 13:49 100 05/27/21 11:40 96 Pain Intensity Bilateral Buttock: Pain Intensity: 8 Transfer of Care Handoff Completed per policy Notes Mental Status: alert / awake / arousable Patient Amnestic to Procedure: Yes Nausea / Vomiting: adequately controlled Pain: adequately controlled Airway Patency, RR, SpO2: stable & adequate BP & HR: stable & adequate Hydration State: stable & adequate Anesthetic Complications: no major complications apparent
[2021-05-27] MEDS ORDERED: ALUMINUM/MAGNESIUM SUSP 30 ML UDC PO PRN (20:48)
[2021-05-27] MEDS ORDERED: MAGNESIUM HYDROXIDE SUSP 30 ML UDC PO PRN (20:48)
[2021-05-27] MEDS ORDERED: POLYETHYLENE (MIRALAX) 17 GM PACK PO PRN (20:48)
[2021-05-27] MEDS ORDERED: oxyCODONE HCL IR 5 MG TAB (IMMEDIATE RELEASE) PO PRN (20:48)
[2021-05-27] MEDS: LACTATED RINGER'S 1,000 ML IV SCH (21:08)
[2021-05-27] MEDS ORDERED: PIPERACILLIN/TAZOBACTAM 3.375 GM in DEXTROSE 5% 100 ML IV STA (21:14)
[2021-05-27] MEDS: ENOXAPARIN INJ 40 MG/0.4 ML SYR SQ SCH (21:27)
--- NOTE | 2021-05-27 21:48 | Pharmacy Report ---
Pharmacy Abx Dose Short Note - Date of Service May 27, 2021 - Assessment & Plan Assessment 46 year old M receiving IV Vancomycin and Zosyn for treatment of sepsis secondary to BL gluteal abscess Day # 1 of antimicrobial therapy. * No renal impairment noted; sCr = 0.73 mg/dL, estimated CrCl >100 mL/min * Patient meets criteria for Vancomycin AUC dosing * He received Vancomycin 1750mg (~20mg/kg) IV as a loading dose in the ED Plan Vancomycin * Initiate Vancomycin 1500mg (~16mg/kg) IV q8 as per Vancomycin nomogram * Goal trough level for sepsis/cellulitis : ~15 mcg/mL * Trough level ordered for: 05/29/21 @ 0730 Zosyn * Give Zosyn 3.375g IV x 1 as loading dose, then initiate Zosyn 3.375g IV q8 (extended infusion) for CrCl >20 mL/min Pharmacy will continue to follow and will adjust dose/frequency as necessary. Thank you.
[2021-05-27] MEDS: VANCOMYCIN HCL 1,500 MG in SODIUM CHLORIDE 0.9% 500 ML IV SCH (23:51)
--- NOTE | 2021-05-28 00:49 | Operative Report (OR) ---
DATE OF SURGERY: 05/27/2021 PREOPERATIVE DIAGNOSIS: Bilateral gluteal abscess. POSTOPERATIVE DIAGNOSIS: Bilateral gluteal abscess. PROCEDURE: Incision and drainage of bilateral gluteal abscess. SURGEON: Obinna Mace MD ANESTHESIA: General. ESTIMATED BLOOD LOSS: About 5 mL FINDINGS: Bilateral gluteal abscess, wound cultures sent, packing the wound. COMPLICATIONS: None. INDICATIONS: This is a 46-year-old gentleman who presented with bilateral gluteal infection with pain for 4-5 days and the patient had a CT scan and diagnosis of bilateral gluteal cellulitis, possible abscess and after I examined the patient and took history and reviewed all lab and the patient's white count is 16,000, and the patient had sepsis symptoms, I recommend to do the incision and drainage of bilateral gluteal abscess. I did talk to the patient about the benefit, the risk, the alternate procedure. I indicated the risks may include, but not limited to, such as bleeding, infection, sepsis, multiple organ failure, recurrence. The patient understands and signed informed consent and I answered all questions. DETAILS OF PROCEDURE: After we identified the patient and verified the procedure, we brought the patient to the OR, put the patient on the supine position. The patient received SCD on bilateral legs to prevent DVT. Also, the patient received 1.750 mg vancomycin and 1000 mg cefoxitin IV for prophylactic antibiotic. The patient had general anesthesia without difficulty. I then repositioned the patient and put on the OR table on the prone position. The patient's bilateral gluteal area was prepped and draped in routine sterile fashion. After timeout I then made incision on the right sided gluteal abscess . There is some pus come out and we sent the wound culture. Once we cleaned the abscess cavity, we used normal saline to flush the cavity. Then, we packing with half-inch Kerlix. Hemostasis was obtained. Then, we moved on to the left side gluteal abscess. We made about a 2 cm incision on the left side gluteal abscess. There is some pus coming out, we did send wound culture. Once we cleared off the abscess cavity we used normal saline and flushed the cavity and hemostasis was obtained. Then, we used a half-inch Kerlix to pack in the wound and again no active bleeding. We put the dressing on. The patient tolerated the procedure well. All instrument, needle and sponge counts were correct x2 at the end of the case. Patient transferred to recovery room in stable condition. Wound cultures sent to the labs. Job ID: [id number] [facility]
[2021-05-28] MEDS: PIPERACILLIN/TAZOBACTAM 3.375 GM in DEXTROSE 5% 100 ML IV SCH ×3 (03:16→21:00)
[2021-05-28] MEDS: LACTATED RINGER'S 1,000 ML IV SCH (05:24)
[2021-05-28 05:47] LABS: Hematocrit (blood only) 34.8 % (42-52); Hemoglobin 11.6 g/dL (14.0-18.0); Immature Granulocytes # (auto) 0.04 K/uL (0.00-0.02); Immature Granulocytes % (auto) 0.3 %; Lymphocytes # (auto) 0.41 K/uL (1.2-3.4); Mean Corpuscular Hemoglobin 28.8 pg (25-34); Mean Corpuscular Hgb Conc 33.3 g/dL (32-36); Mean Corpuscular Volume 86.4 fL (80-100); Monocytes # (auto) 0.62 K/uL (0.11-0.59); Monocytes % (auto) 4.5 %; Neutrophils # (auto) 12.64 K/uL (1.4-6.5); Neutrophils % (auto) 92.2 %; Platelet Count 220 K/uL (130-400); RDW Coefficient of Variation 13.5 % (11.5-14.5); RDW Standard Deviation 43.1 fL (36.4-46.3); Red Blood Count 4.03 M/uL (4.7-6.1); White Blood Count 13.71 K/uL (4.8-10.8)
[2021-05-28 06:15] LABS: Albumin Level 3.1 gm/dl (3.4-5.0); BUN Creatinine Ratio 16.2 (10-20); Calcium 8.6 mg/dl (8.5-10.1); Est GFR (African American) 126.4 ml/min; Est GFR (Non-African American) 109.1 ml/min; Potassium 4.6 mmol/L (3.5-5.1)
[2021-05-28 06:20] LABS: Albumin Globulin Ratio 0.9 (0.9-2); Bilirubin,Total 0.5 mg/dl (0.2-1); Globulin 3.3 gm/dl (2.5-4.0); Prostate Specific Antigen 0.788 ng/ml (0-4); Total Protein 6.4 gm/dl (6.4-8.2)
[2021-05-28] MEDS: VANCOMYCIN HCL 1,500 MG in SODIUM CHLORIDE 0.9% 500 ML IV SCH ×2 (08:14→16:30)
[2021-05-28] MEDS: lisinopril 40 MG TAB PO SCH (08:15)
--- NOTE | 2021-05-28 10:55 | Surgery Progress Note ---
Date of Service F/U S/P I/D bilateral gluteal abscess, POD 1 pt is doing much better, no fever, less pain, WBC 13,000 May 28, 2021 Assessment & Plan (1) Cellulitis and abscess of buttock: pt is a 46 year-old male who presents to [facility] with[facility] 4 days history bilateral gluteal pain with fever, IMP: bilateral gluteal cellulitis with abscess, plan, I recommend to do I/d bilateral gluteal abscess, D/W benefits, risks and alternatives of the surgery, the risks - infection, bleeding, sepsis, multiple organs failure, recurrence, pt understood, he agree with the surgery,He signed informed consent, I answered all questions, pre-op antibiotic, 05/28/2021 10:54AM F/U S/P I/D bilateral gluteal abscess, doing better, continue IV antibiotic, repeat CBC in morning, change wound packing tomorrow, will F/U, Admission and Anticipated Discharge Date Admission Date: May 27, 2021 Physical Exam Constitutional: WD/WN, vitals as above well developed and well nourished Eyes: PERRL, conjunctivae normal, anicteric sclerae ENMT: external ear and nose normal, oropharynx normal Neck: trachea midline, no thyromegaly Respiratory: normal respiratory effort, lungs clear to auscultation normal respiratory effort Cardiovascular: RRR, no murmur, no edema Rate/Rhythm: regular rate and regular rhythm Gastrointestinal (Abdomen): normal bowel sounds, soft, nontender, no hepatosplenomegaly Percussion/Palpation: abdomen soft the incision s dry, no drainage, Musculoskeletal: no cyanosis or clubbing, extremities motor strength 5/5 Neurologic: awake Psychiatric: Orientation: alert and oriented x 3 Results & Data ([facility]) Vital Signs (Past 12 Hours) Vital Signs Temp Pulse Resp BP Pulse Ox 05/28/21 07:38 36.6 C 68 16 122/74 97 05/28/21 03:19 36.9 C 77 16 124/79 96 05/27/21 23:45 37.1 C 90 16 129/68 94 Laboratory Results Abnormal lab results 05/27/21 05/27/21 05/27/21 Range/Units 14:15 14:15 14:15 WBC 16.30 H (4.8-10.8) K/uL RBC 4.36 L (4.7-6.1) M/uL Hgb 12.6 L (14.0-18.0) g/dL Hct 36.6 L (42-52) % Neut # (Auto) 15.15 H (1.4-6.5) K/uL Lymph # (Auto) 0.49 L (1.2-3.4) K/uL [place] # (Auto) 0.60 H (0.11-0.59) K/uL Immature Gran # (Auto) 0.05 H (0.00-0.02) K/uL ESR (0-15) mm/hr Sodium 135 L (136-145) mmol/L Anion Gap (3-11) BUN/Creatinine Ratio 21.6 H (10-20) Glucose 109 H (70-99) mg/dl C-Reactive Protein 25.50 H (0-0.29) mg/dl Albumin (3.4-5.0) gm/dl Procalcitonin 2.61 H (0-0.5) ng/ml 05/27/21 05/28/21 05/28/21 Range/Units 14:15 05:32 05:32 WBC 13.71 H (4.8-10.8) K/uL RBC 4.03 L (4.7-6.1) M/uL Hgb 11.6 L (14.0-18.0) g/dL Hct 34.8 L (42-52) % Neut # (Auto) 12.64 H (1.4-6.5) K/uL Lymph # (Auto) 0.41 L (1.2-3.4) K/uL [place] # (Auto) 0.62 H (0.11-0.59) K/uL Immature Gran # (Auto) 0.04 H (0.00-0.02) K/uL ESR 25 H (0-15) mm/hr Sodium (136-145) mmol/L Anion Gap 1.0 L (3-11) BUN/Creatinine Ratio (10-20) Glucose 138 H (70-99) mg/dl C-Reactive Protein (0-0.29) mg/dl Albumin 3.1 L (3.4-5.0) gm/dl Procalcitonin (0-0.5) ng/ml 05/28/21 Range/Units 05:32 WBC (4.8-10.8) K/uL RBC (4.7-6.1) M/uL Hgb (14.0-18.0) g/dL Hct (42-52) % Neut # (Auto) (1.4-6.5) K/uL Lymph # (Auto) (1.2-3.4) K/uL [place] # (Auto) (0.11-0.59) K/uL Immature Gran # (Auto) (0.00-0.02) K/uL ESR (0-15) mm/hr Sodium (136-145) mmol/L Anion Gap (3-11) BUN/Creatinine Ratio (10-20) Glucose (70-99) mg/dl C-Reactive Protein (0-0.29) mg/dl Albumin (3.4-5.0) gm/dl Procalcitonin 2.31 H (0-0.5) ng/ml
--- NOTE | 2021-05-28 13:34 | Hospitalist Progress Note ---
Date of Service May 28, 2021 Assessment & Plan (1) Cellulitis and abscess of buttock: * Patient showing favorable response * Continue empiric antibiotic therapy with Zosyn/vancomycin. Preliminary culture data showing gram-positive cocci. * Will await final culture data to help guide/tailor antibiotic regimen. Suspect Bactrim likely appropriate choice but needed I&D of abscess (2) Status post incision and drainage: * Wound care orders discussed with general surgery. Nursing staff to remove packing, irrigate/clean with NSS and repacked with iodoform every 48 hours. Cover with dry dressing. (3) Sepsis syndrome: * patient with early sepsis syndrome, no evidence of shock * he is responding favorably to treatment * has remained hemodynamically stable, WBC downtrending, has remained afebrile * d/c IVF * cont abx regimen as outlined above (awaiting final culture data) * will need trending lab (procalcitonin in the am and repeat ESR/CRP in 2 weeks (4) IFG (impaired fasting glucose): * will obtain A1C * dietary changes discussed (pt reports that he eats little carb and mostly protein) * will obtain an A1C * will likely need GTT as an OP if persistent (5) HTN (hypertension), benign: * controlled. continue lisinopril (6) DVT prophylaxis: * continue lovenox Admission and Anticipated Discharge Date Admission Date: May 27, 2021 Subjective Mr. Puente is a 46 y/o [facility] inmate who was hospitalized with a bilateral gluteal abscess and early sepsis syndrome. Started on Bactrim the day [employer]. BAIG in the ED revealed early Sepsis syndrome: leukocytosis of 16.8 and a Left shift, low grade fever or 100.2, mild tachycardia of 113 BPM, elevated procalci tonin of 2.6, elevated ESR of 25 /CRP of 25.5. No lactic acid. Otherwise, his BP was stable at 134/90. CT revealved no drainage abscess but ulceration noted although clinically, there appeared to be an abscess Taken to the OR yesterday by Dr. Null for I&D of bilateral abscess (which did yield mucopurulent drainage) Today, pain significantly improved. He has remained afebrile. WBC downtrending (13.7 today). Procalcitonin downtrending (2.1) Culture data showing preliminary growth of GPC, Final culture data is pending FBG elevated at 138. Reports no personal or family h/o DM. Review of Systems Review of Systems: Denies fevers, chills, headache, nasal congestion, sore throat, cough, chest pain, shortness of breath, abdominal pain, nausea, vomiting, GI/ symptomatology. Physical Exam Physical Exam: General: Resting comfortably in his hospital bed. A&O X3 NAD. Cardiac: RRR without M/G/R Lungs: CTA without W/R/R Abdomen: Normoactive X4. Soft and nontender in all quadrants. Extremities: No peripheral clubbing cyanosis or edema Skin: bilateral gluteus region (just on either side of the gluteal cleft) has a clinic incision with indwelling packing to each wound. Skin is firm (from the packing) but not indurated. Nontender to touch. No purulent drainage. Surrounding skin is pink, clean and dry. Results & Data Results & Data ([facility]) Vital Signs (Past 12 Hours) Vital Signs Temp Pulse Resp BP Pulse Ox 05/28/21 07:38 36.6 C 68 16 122/74 97 05/28/21 03:19 36.9 C 77 16 124/79 96 Laboratory Results 05/28/21 05:32 05/28/21 05:32 Procalcitonin downtrending at 2.31. Wound culture: Preliminary growth of gram-positive cocci. Final culture data pending. Blood cultures: Pending PG Care Time/CCT Total # of Minutes Spent Total Time Spent with Patient: Total time spent is greater than 50% in coordination of care (as documented) at patient's floor/unit and/or counseling patient: [place] [address] Subseq Hosp Care Lvl 2 Patient Type Established History Detailed Exam Expanded Problem Focused Medical Decision Making Moderate Complexity Diagnoses Cellulitis and abscess of buttock L02.31; L03.317 Status post incision and drainage Z98.890 Sepsis syndrome IFG (impaired fasting glucose) R73.01 HTN (hypertension), benign I10 DVT prophylaxis Z29.9
[2021-05-28] MEDS: IBUPROFEN 600 MG TAB PO PRN (16:43)
[2021-05-28] MEDS: ACETAMINOPHEN 325 MG TAB PO PRN (17:45)
[2021-05-28] MEDS: HYDROmorphone INJ 1 MG/ML SYRINGE IV PRN (18:52)
[2021-05-28] MEDS: ENOXAPARIN INJ 40 MG/0.4 ML SYR SQ SCH (21:00)
[2021-05-29] MEDS: VANCOMYCIN HCL 1,500 MG in SODIUM CHLORIDE 0.9% 500 ML IV SCH ×2 (01:05→09:13)
[2021-05-29] MEDS: PIPERACILLIN/TAZOBACTAM 3.375 GM in DEXTROSE 5% 100 ML IV SCH ×3 (03:52→20:52)
[2021-05-29] MEDS ORDERED: VANCOMYCIN TROUGH ONE (07:30)
[2021-05-29 07:35] LABS: Basophils # (auto) 0.01 K/uL (0-0.2); Basophils % (auto) 0.1 %; Eosinophils # (auto) 0.07 K/uL (0-0.5); Eosinophils % (auto) 0.8 %; Hematocrit (blood only) 33.6 % (42-52); Hemoglobin 11.3 g/dL (14.0-18.0); Immature Granulocytes # (auto) 0.03 K/uL (0.00-0.02); Immature Granulocytes % (auto) 0.3 %; Lymphocytes # (auto) 1.25 K/uL (1.2-3.4); Lymphocytes % (auto) 14.1 %; Mean Corpuscular Hemoglobin 28.7 pg (25-34); Mean Corpuscular Hgb Conc 33.6 g/dL (32-36); Mean Corpuscular Volume 85.3 fL (80-100); Mean Platelet Volume 10.2 fL (7.4-10.4); Monocytes # (auto) 0.64 K/uL (0.11-0.59); Monocytes % (auto) 7.2 %; Neutrophils # (auto) 6.85 K/uL (1.4-6.5); Neutrophils % (auto) 77.5 %; Platelet Count 251 K/uL (130-400); RDW Coefficient of Variation 13.7 % (11.5-14.5); RDW Standard Deviation 42.8 fL (36.4-46.3); Red Blood Count 3.94 M/uL (4.7-6.1); White Blood Count 8.85 K/uL (4.8-10.8)
[2021-05-29 08:13] LABS: Albumin Globulin Ratio 0.9 (0.9-2); Albumin Level 2.9 gm/dl (3.4-5.0); Bilirubin,Total 0.5 mg/dl (0.2-1); Calcium 8.4 mg/dl (8.5-10.1); Creatinine Clr Calc Pharmacy 145.8 ml/min; Est GFR (African American) 129.3 ml/min; Est GFR (Non-African American) 111.6 ml/min; Globulin 3.4 gm/dl (2.5-4.0); Magnesium 2.2 mg/dl (1.8-2.4); Potassium 3.8 mmol/L (3.5-5.1); Total Protein 6.3 gm/dl (6.4-8.2)
[2021-05-29] MEDS: lisinopril 40 MG TAB PO SCH (09:13)
--- NOTE | 2021-05-29 09:51 | Surgery Progress Note ---
Date of Service F/U S/P I/D bilateral gluteal abscess, POD 2, pt doing better, no fever, the wound is dry, no redness, wound culture reviewed, May 29, 2021 Assessment & Plan (1) Cellulitis and abscess of buttock: pt is a 46 year-old male who presents to [facility] withn 4 days history bilateral gluteal pain with fever, IMP: bilateral gluteal cellulitis with abscess, plan, I recommend to do I/d bilateral gluteal abscess, D/W benefits, risks and alternatives of the surgery, the risks - infection, bleeding, sepsis, multiple organs failure, recurrence, pt understood, he agree with the surgery,He signed informed consent, I answered all questions, pre-op antibiotic, 05/28/2021 10:54AM F/U S/P I/D bilateral gluteal abscess, doing better, continue IV antibiotic, repeat CBC in morning, change wound packing tomorrow, will F/U, 05/29/2021 9:48AM F/U S/P I/D bilateral gluteal abscess, POD 2 doing better, no fever, D/C today, post op care instruction was given, F/U 2 weeks, Admission and Anticipated Discharge Date Admission Date: May 28, 2021 Subjective Mr. Puente is a 46 y/o [employer] inmate who was hospitalized with a bilateral gluteal abscess and early sepsis syndrome. Started on Bactrim the day [employer]. BAIG in the ED revealed early Sepsis syndrome: leukocytosis of 16.8 and a Left shift, low grade fever or 100.2, mild tachycardia of 113 BPM, elevated procalcitonin of 2.6, elevated ESR of 25 /CRP of 25.5. No lactic acid. Otherwise, his BP was stable at 134/90. CT revealved no drainage abscess but ulceration noted although clinically, there appeared to be an abscess Taken to the OR yesterday by Dr. Null for I&D of bilateral abscess (which did yield mucopurulent drainage) Today, pain significantly improved. He has remained afebrile. WBC downtrending (13.7 today). Procalcitonin downtrending (2.1) Culture data showing preliminary growth of GPC, Final culture data is pending FBG elevated at 138. Reports no personal or family h/o DM. Physical Exam Constitutional: WD/WN, vitals as above well developed and well nourished Eyes: PERRL, conjunctivae normal, anicteric sclerae ENMT: external ear and nose normal, oropharynx normal Neck: trachea midline, no thyromegaly Respiratory: normal respiratory effort, lungs clear to auscultation normal respiratory effort Cardiovascular: RRR, no murmur, no edema Rate/Rhythm: regular rate and regular rhythm Gastrointestinal (Abdomen): normal bowel sounds, soft, nontender, no hepatosplenomegaly Percussion/Palpation: abdomen soft the incision is dry, no drainage, no redness, Musculoskeletal: no cyanosis or clubbing, extremities motor strength 5/5 Neurologic: awake Psychiatric: Orientation: alert and oriented x 3 Results & Data ([facility]) Vital Signs (Past 12 Hours) Vital Signs Temp Pulse Resp BP Pulse Ox 05/29/21 08:45 37.2 C 110 H 17 164/89 H 97 05/28/21 22:28 36.5 C 70 16 124/76 96 Laboratory Results Abnormal lab results 05/29/21 05/29/21 05/29/21 Range/Units 07:18 07:18 07:18 RBC 3.94 L (4.7-6.1) M/uL Hgb 11.3 L (14.0-18.0) g/dL Hct 33.6 L (42-52) % Neut # (Auto) 6.85 H (1.4-6.5) K/uL [place] # (Auto) 0.64 H (0.11-0.59) K/uL Immature Gran # (Auto) 0.03 H (0.00-0.02) K/uL Calcium 8.4 L (8.5-10.1) mg/dl Total Protein 6.3 L (6.4-8.2) gm/dl Albumin 2.9 L (3.4-5.0) gm/dl Procalcitonin 1.31 H (0-0.5) ng/ml
[2021-05-29 11:05] LABS: Estimated Average Glucose 105 mg/dl; Hemoglobin A1C 5.3 % (4.5-5.6)
[2021-05-29] MEDS ORDERED: SODIUM CHLORIDE 0.9% 1000ML 1,000 ML IV SCH (12:45)
[2021-05-29] MEDS: IBUPROFEN 600 MG TAB PO PRN (13:30)
[2021-05-29] MEDS: ACETAMINOPHEN 325 MG TAB PO PRN (13:31)
--- NOTE | 2021-05-29 15:07 | Discharge Summary (DS) ---
DATE OF ADMISSION: 05/28/2021 DATE OF DISCHARGE: 05/29/2021 ADMITTING DIAGNOSIS: Bilateral gluteal abscess. POSTOPERATIVE DIAGNOSIS: Bilateral gluteal cellulitis with abscess. OPERATION: Incision and drainage of bilateral gluteal abscess. SURGEON: Obinna Mace MD. DETAILS OF DISCHARGE SUMMARY: This is a 46-year-old gentleman who presented to ED with bilateral glut eal abscess. I recommended to do incision and drainage of bilateral gluteal abscess. We took the pa tient to the OR, we did bilateral incision and drainage of gluteal abscess. The patient tolerated e procedure well and after the procedure, the patient was transferred to the recovery room and later on transferred to regular floor. The patient doing fine and today is postoperative day 2, the patien t is feeling much better, has no pain and no more cellulitis. The wound is dry. No fever. PHYSICAL EXAMINATION: VITAL SIGNS: Temperature is 37.2, respiratory rate 17, heart rate 110, blood pressure 164/89, O2 sat uration 97% on room air. GENERAL: The patient is alert, awake, oriented x3. HEENT: Within normal limitation. NEUROLOGICAL EXAM: Intact. NECK: No JVD. CHEST: Bilateral lung sounds clear. HEART: Normal S1, S2. No murmur. ABDOMEN: Soft and nondistended. Bilateral gluteal wound is dry and clean. No more redness, no drai nage. EXTREMITIES: No edema. We discharged the patient today. We gave the patient postop care instruction and I will follow up e patient in 2 weeks. We discharged the patient with Bactrim 800/160 one tab p.o. b.i.d. x14 days. Also, we reviewed the wound culture result. The patient understands. Job ID: [id number]
[2021-05-29] MEDS: HYDROmorphone INJ 1 MG/ML SYRINGE IV PRN (20:38)
[2021-05-29] MEDS: ENOXAPARIN INJ 40 MG/0.4 ML SYR SQ SCH (20:53)
[2021-05-29] MEDS ORDERED: COUGH DROP (SUGAR FREE) LOZ 24 LOZ/1 BOX BUCCAL ONE (20:57)
--- NOTE | 2021-05-29 21:52 | Hospitalist Progress Note ---
Date of Service May 29, 2021 Assessment & Plan (1) Cellulitis and abscess of buttock: * Patient showing favorable response * Continue empiric antibiotic therapy with Zosyn. * Preliminary culture data showing gram-positive cocci: sensitive to zosyn, will hold vanco.. * Will await final culture data to help guide/tailor antibiotic regimen. * Suspect Bactrim likely appropriate choice but needed I&D of abscess * will hold discharge until patient no longer tachycardic, procal is also elevated. * will give IVF and check EKG. (2) Status post incision and drainage: * Wound care orders discussed with general surgery. Nursing staff to remove packing, irrigate/clean with NSS and repacked with iodoform every 48 hours. Cover with dry dressing. (3) Sepsis syndrome: * patient with early sepsis syndrome, no evidence of shock * he is responding favorably to treatment * has remained hemodynamically stable, WBC downtrending, has remained afebrile * d/c IVF * cont abx regimen as outlined above (awaiting final culture data) * will need trending lab (procalcitonin in the am and repeat ESR/CRP in 2 weeks (4) IFG (impaired fasting glucose): * will obtain A1C * dietary changes discussed (pt reports that he eats little carb and mostly protein) * will obtain an A1C * will likely need GTT as an OP if persistent (5) HTN (hypertension), benign: * controlled. continue lisinopril (6) DVT prophylaxis: * continue lovenox Admission and Anticipated Discharge Date Admission Date: May 28, 2021 Subjective Patient reports feeling better. D.W nurse, he has remained tachycardic however. Review of Systems Review of Systems: All systems reviewed & are unremarkable except as noted in HPI & below Physical Exam Physical Exam: General: Resting comfortably in his hospital bed. A&O X3 NAD. Cardiac: RRR without M/G/R Lungs: CTA without W/R/R Abdomen: Normoactive X4. Soft and nontender in all quadrants. Extremities: No peripheral clubbing cyanosis or edema Skin: bilateral gluteus region (just on either side of the gluteal cleft) has a clinic incision with indwelling packing to each wound. Skin is firm (from the packing) but not indurated. Nontender to touch. No purulent drainage. Surrounding skin is pink, clean and dry. Results & Data Results & Data ([facility]) Vital Signs (Past 12 Hours) Vital Signs Temp Pulse Pulse Pulse Resp BP Pulse Ox 05/29/21 15:27 37.0 C 84 17 155/75 H 97 05/29/21 10:15 37.2 C 105 H 103 H 110 H 17 164/89 H 97 PG Care Time/CCT Total # of Minutes Spent Total Time Spent with Patient: Total time spent is greater than 50% in coordina tion of care (as documented) at patient's floor/unit and/or counseling patient: Coding Level of Care Code 42304 Subseq Hosp Care Lvl 3 Diagnoses Cellulitis and abscess of buttock L02.31; L03.317 Status post incision and drainage Z98.890 Sepsis syndrome IFG (impaired fasting glucose) R73.01 HTN (hypertension), benign I10 DVT prophylaxis Z29.9 Time Spent (min) 35
[2021-05-30] MEDS: IBUPROFEN 600 MG TAB PO PRN ×3 (03:12→23:09)
[2021-05-30] MEDS: ACETAMINOPHEN 325 MG TAB PO PRN ×3 (03:13→20:18)
[2021-05-30] MEDS: PIPERACILLIN/TAZOBACTAM 3.375 GM in DEXTROSE 5% 100 ML IV SCH (04:55)
[2021-05-30 07:29] LABS: Basophils # (auto) 0.01 K/uL (0-0.2); Basophils % (auto) 0.2 %; Eosinophils # (auto) 0.09 K/uL (0-0.5); Eosinophils % (auto) 1.5 %; Hematocrit (blood only) 30.7 % (42-52); Hemoglobin 10.1 g/dL (14.0-18.0); Immature Granulocytes # (auto) 0.01 K/uL (0.00-0.02); Immature Granulocytes % (auto) 0.2 %; Lymphocytes # (auto) 1.13 K/uL (1.2-3.4); Lymphocytes % (auto) 19.2 %; Mean Corpuscular Hemoglobin 28.9 pg (25-34); Mean Corpuscular Hgb Conc 32.9 g/dL (32-36); Mean Corpuscular Volume 87.7 fL (80-100); Mean Platelet Volume 10.3 fL (7.4-10.4); Monocytes # (auto) 0.62 K/uL (0.11-0.59); Monocytes % (auto) 10.5 %; Neutrophils # (auto) 4.04 K/uL (1.4-6.5); Neutrophils % (auto) 68.4 %; Platelet Count 253 K/uL (130-400); RDW Coefficient of Variation 13.9 % (11.5-14.5); RDW Standard Deviation 44.8 fL (36.4-46.3)
[2021-05-30 07:56] LABS: Albumin Level 2.6 gm/dl (3.4-5.0); Calcium 8.4 mg/dl (8.5-10.1); Est GFR (African American) 130.1 ml/min; Est GFR (Non-African American) 112.3 ml/min; Potassium 3.8 mmol/L (3.5-5.1)
[2021-05-30 07:59] LABS: Albumin Globulin Ratio 0.8 (0.9-2); Bilirubin,Total 0.4 mg/dl (0.2-1); Globulin 3.1 gm/dl (2.5-4.0); Total Protein 5.7 gm/dl (6.4-8.2)
--- NOTE | 2021-05-30 10:12 | Hospitalist Progress Note ---
Date of Service May 30, 2021 Assessment & Plan (1) Cellulitis and abscess of buttock: * Patient showing favorable response * Continue empiric antibiotic therapy with Zosyn. * Preliminary culture data showing gram-positive cocci: sensitive to zosyn, will hold vanco.. * Will await final culture data to help guide/tailor antibiotic regimen. * Suspect Bactrim likely appropriate choice but needed I&D of abscess * will hold discharge until patient no longer tachycardic, procal is also elevated. * EKG showed normal sinus. * Will like to make sure HR remains normal for 24 hours before discharge. * Plan for discharge in AM. (2) Status post incision and drainage: * Wound care orders discussed with general surgery. Nursing staff to remove packing, irrigate/clean with NSS and repacked with iodoform every 48 hours. Cover with dry dressing. (3) Sepsis syndrome: * patient with early sepsis syndrome, no evidence of shock * he is responding favorably to treatment * has remained hemodynamically stable, WBC downtrending, has remained afebrile * d/c IVF * cont abx regimen as outlined above (awaiting final culture data) * will need trending lab (procalcitonin in the am and repeat ESR/CRP in 2 weeks (4) IFG (impaired fasting glucose): * will obtain A1C * dietary changes discussed (pt reports that he eats little carb and mostly protein) * will obtain an A1C * will likely need GTT as an OP if persistent (5) HTN (hypertension), benign: * controlled. continue lisinopril (6) DVT prophylaxis: * continue lovenox (7) Urinary retention: Patient is having difficulty urinating. Likely multifactorial. Will start tamsulosin and monitor. Admission and Anticipated Discharge Date Admission Date: May 28, 2021 Subjective Patient feeling better. No new complaints. Review of Systems Review of Systems: All systems reviewed & are unremarkable except as noted in HPI & below Physical Exam Physical Exam: General: Resting comfortably in his hospital bed. A&O X3 NAD. Cardiac: RRR without M/G/R Lungs: CTA without W/R/R Abdomen: Normoactive X4. Soft and nontender in all quadrants. Extremities: No peripheral clubbing cyanosis or edema Skin: bilateral gluteus region (just on either side of the gluteal cleft) has a clinic incision with indwelling packing to each wound. Skin is firm (from the packing) but not indurated. Nontender to touch. No purulent drainage. Surrounding skin is pink, clean and dry. Results & Data Results & Data ([facility]) Vital Signs (Past 12 Hours) Vital Signs Temp Pulse Resp BP Pulse Ox 05/30/21 08:10 36.9 C 86 16 136/82 97 05/30/21 04:56 37.2 C 73 18 152/78 H 95 05/29/21 23:16 36.9 C 72 18 148/82 H 95 PG Care Time/CCT Total # of Minutes Spent Total Time Spent with Patient: Total time spent is greater than 50% in coordination of care (as documented) at patient's floor/unit and/or counseling patient: Coding Level of Care Code 86550 Subseq Hosp Care Lvl 2 Diagnoses Cellulitis and abscess of buttock L02.31; L03.317 Status post incision and drainage Z98.890 Sepsis syndrome IFG (impaired fasting glucose) R73.01 HTN (hypertension), benign I10 DVT prophylaxis Z29.9 Urinary retention R33.9
[2021-05-30] MEDS: lisinopril 40 MG TAB PO SCH (10:43)
[2021-05-30] MEDS: DICLOXACILLIN SODIUM 250 MG CAP PO SCH ×3 (13:06→23:10)
[2021-05-30] MEDS ORDERED: TAMSULOSIN HCL 0.4 MG CAP PO ONE (13:21)
--- NOTE | 2021-05-30 15:58 | Electrocardiogram Report ---
Test Reason : Blood Pressure : / mmHG Vent. Rate : 086 BPM Atrial Rate : 086 BPM P-R Int : 130 ms QRS Dur : 086 ms QT Int : 376 ms P-R-T Axes : 071 059 025 degrees QTc Int : 449 ms Normal sinus rhythm Normal ECG No previous ECGs available Confirmed by Marty Menon ([id number]) on 05/30/2021 3:58:21 PM Referred By: Zane PERALTA Confirmed By:Marty Menon
[2021-05-30] MEDS: ENOXAPARIN INJ 40 MG/0.4 ML SYR SQ SCH (20:18)
[2021-05-31] MEDS: DICLOXACILLIN SODIUM 250 MG CAP PO SCH ×4 (06:03→23:41)
[2021-05-31 06:59] LABS: Basophils # (auto) 0.02 K/uL (0-0.2); Basophils % (auto) 0.3 %; Eosinophils # (auto) 0.13 K/uL (0-0.5); Eosinophils % (auto) 1.6 %; Hematocrit (blood only) 36.7 % (42-52); Hemoglobin 12.3 g/dL (14.0-18.0); Immature Granulocytes # (auto) 0.04 K/uL (0.00-0.02); Immature Granulocytes % (auto) 0.5 %; Lymphocytes # (auto) 1.47 K/uL (1.2-3.4); Lymphocytes % (auto) 18.6 %; Mean Corpuscular Hemoglobin 28.5 pg (25-34); Mean Corpuscular Hgb Conc 33.5 g/dL (32-36); Monocytes # (auto) 0.66 K/uL (0.11-0.59); Monocytes % (auto) 8.3 %; Neutrophils # (auto) 5.59 K/uL (1.4-6.5); Neutrophils % (auto) 70.7 %; Platelet Count 321 K/uL (130-400); RDW Coefficient of Variation 13.4 % (11.5-14.5); RDW Standard Deviation 41.9 fL (36.4-46.3); Red Blood Count 4.32 M/uL (4.7-6.1); White Blood Count 7.91 K/uL (4.8-10.8)
[2021-05-31 07:31] LABS: Albumin Globulin Ratio 0.8 (0.9-2); Albumin Level 3.2 gm/dl (3.4-5.0); Bilirubin,Total 0.6 mg/dl (0.2-1); Creatinine Clr Calc Pharmacy 154.7 ml/min; Est GFR (African American) 132.5 ml/min; Est GFR (Non-African American) 114.3 ml/min; Globulin 3.9 gm/dl (2.5-4.0); Total Protein 7.1 gm/dl (6.4-8.2)
[2021-05-31] MEDS: lisinopril 40 MG TAB PO SCH (10:57)
[2021-05-31] MEDS: IBUPROFEN 600 MG TAB PO PRN (17:45)
--- NOTE | 2021-05-31 17:58 | Discharge Summary ---
Date of Service May 31, 2021 Admission HPI Per Admitting Provider This patient is a 46-year-old male with a history of hypertension who presents to the ER from the senior care for evaluation of bilateral gluteal abscesses. He reports first noticing pimple-like areas on the bilateral buttocks 4 days ago, but then he started having fevers and chills for the last 2 days and significantly worsening pain in the buttocks. He also felt like the pain was spreading up to his right kidney and he was worried about sepsis. He reports nausea and vomiting all day yesterday and was not able to keep anything down. He has not had a bowel movement in 2 days and no diarrhea. He reports his urine output dropped off in the last 24 hours as well. He was seen at the [facility] and started on Bactrim but had not yet had an incision and drainage. He was having moderate to severe pain. He has noticed drainage from the right gluteal abscess and minimal drainage from the left. He denies rectal bleeding or pain. He has no personal history of MRSA or previous skin infections/abscesses. In the ER, he was found to have fever, leukocytosis, elevated CRP, mild hyponatremia, and procalcitonin elevated at 2.61. Attempts were made to I&D the abscesses in the ER and a small amount of pus was drained from the left gluteal abscess. He was also noted by the ER physician to have significant surrounding cellulitis. A pelvic CT was performed and showed infiltration of the fat involving both gluteal folds with overlying skin thickening consistent with bilateral gluteal cellulitis right greater than left, also with a 4 mm skin ulceration involving the right gluteal fold, but no drainable abscess noted. His appendix was noted to be normal and no evidence of acute diverticulitis. In the ER, he was given IV ceftriaxone and IV vancomycin as well as oxycodone as well as morphine for pain and Zofran for nausea. He was also given 1 L of normal saline. His blood pressure was normal but he was mildly tachycardic. He will be admitted for sepsis secondary to gluteal abscesses with cellulitis. Discharge Data Allergies Allergy/AdvReac Type Severity Reaction Status Date / Time No Known Allergies Allergy Unverified 05/27/21 12:10 Consultations 05/27/21 15:51 ED Decision to Admit Stat 05/27/21 16:19 Consult General Surgery Routine Procedures Performed Operation Date: 05/27/21 18:45 Actual Procedures p Incision and drainage bilateral gluteal cellulitis with abscess(Bilateral) - Obinna Mace MD Ordered Studies 05/27/21 13:41 CT pelvis w/IV con only Stat Hospital Course (1) Cellulitis and abscess of buttock: * Patient showing favorable response * Continue empiric antibiotic therapy with Zosyn. * Preliminary culture data showing gram-positive cocci: sensitive to zosyn, will hold vanco.. * Will await final culture data to help guide/tailor antibiotic regimen. * Suspect Bactrim likely appropriate choice but needed I&D of abscess * will hold discharge until patient no longer tachycardic, procal is also elevated. * EKG showed normal sinus. * Will like to make sure HR remains normal for 24 hours before discharge. * Plan for discharge in AM. (2) Status post incision and drainage: * Wound care orders discussed with general surgery. Nursing staff to remove packing, irrigate/clean with NSS and repacked with iodoform every 48 hours. Cover with dry dressing. (3) Sepsis syndrome: * patient with early sepsis syndrome, no evidence of shock * he is responding favorably to treatment * has remained hemodynamically stable, WBC downtrending, has remained afebrile * d/c IVF * cont abx regimen as outlined above (awaiting final culture data) * will need trending lab (procalcitonin in the am and repeat ESR/CRP in 2 weeks (4) IFG (impaired fasting glucose): * will obtain A1C * dietary changes discussed (pt reports that he eats little carb and mostly protein) * will obtain an A1C * will likely need GTT as an OP if persistent (5) HTN (hypertension), benign: * controlled. continue lisinopril (6) DVT prophylaxis: * continue lovenox (7) Urinary retention: Patient is having difficulty urinating. Likely multifactorial. Will start tamsulosin and monitor. Discharge Plan Discharge Items [facility]position[facility] Reason For Visit: GLUTEAL ABSCESS,CELLULITIS,SEPSIS Discharge Diagnosis: S/P Incision and drainage bilateral gluteal abscess Condition on Discharge: Good Activity: As commented below Lifting: Gradually increase as tolerated Bathing: May shower/bathe in 3 days Sexual Activity: When tolerated Exercise/Sports: Rest today Non-emergency contact: Surgeon Call non-emergency contact if: you have any medication questions, your symptoms worsen, your pain is not controlled and your pain is worsening Follow-up/Referrals: Zane PERALTA [Primary Care Provider] - (follow up DR. Mace 2 weeks, Agree-I have documented within the medical record.) Diet: Regular Addtl Attending Provider Instructions: change packing with kerlex once a day, percocet 5/325 one pill po q6h prn for pain for 4 days, , bactrim 800/160 one pill po bid x 14 days, Pending Studies at Discharge: Yes Studies:: wound culture Stand-Alone Forms: My [facility] Skilled Items Patient informed of condition?: Yes Discharge Level of Care: Skilled Communicable Disease: No Discharge Prognosis: Improving Lines: None Urinary Catheter: No Medications and DC Order Prescriptions: Continued sulfamethoxazole-trimethoprim [Bactrim DS] 800-160 mg Tablet 1 tab PO BID RF: 0 ibuprofen 600 mg Tablet 600 mg PO TID RF: 0 lisinopril 40 mg Tablet 40 mg PO QAM RF: 0 Admission Data Admit Date/Time: 05/28/21 12:08 Attending Provider: Gallo Lee Admit Provider: Britney Leija Primary Care Provider: Zane PERALTA Other Providers: Obinna Mace ; Britney Leija Other Interventions: Discharge Summary Assessment (RN) Last Done: 05/29/21 10:15 Coding Diagnoses Cellulitis and abscess of buttock L02.31; L03.317 Status post incision and drainage Z98.890 Sepsis syndrome IFG (impaired fasting glucose) R73.01 HTN (hypertension), benign I10 DVT prophylaxis Z29.9 Urinary retention R33.9
[2021-05-31] MEDS: ENOXAPARIN INJ 40 MG/0.4 ML SYR SQ SCH (21:31)
[2021-05-31] MEDS: ACETAMINOPHEN 325 MG TAB PO PRN (21:34)
[2021-06-01] MEDS: DICLOXACILLIN SODIUM 250 MG CAP PO SCH ×3 (05:56→16:35)
[2021-06-01] MEDS: lisinopril 40 MG TAB PO SCH (07:22)
[2021-06-01] MEDS: LACTOBACILLUS ACIDOPHILUS 1 GM PACK PO SCH ×3 (07:22→16:35)
--- NOTE | 2021-06-01 09:20 | Hospitalist Progress Note ---
Date of Service May 31, 2021 Assessment & Plan (1) Cellulitis and abscess of buttock: * Patient showing favorable response * Continue empiric antibiotic therapy with Zosyn. * Preliminary culture data showing gram-positive cocci: sensitive to zosyn, will hold vanco.. * Will await final culture data to help guide/tailor antibiotic regimen. * Suspect Bactrim likely appropriate choice but needed I&D of abscess * will hold discharge until patient no longer tachycardic, procal is also elevated. * EKG showed normal sinus. * HR has improved. * However, patient is having diarrhea, and loose stools. * Concern that his wounds may get reinfected there. * will try lactobacillus to see if this helps control his loose stools. (2) Status post incision and drainage: * Wound care orders discussed with general surgery. Nursing staff to remove packing, irrigate/clean with NSS and repacked with iodoform every 48 hours. Cover with dry dressing. (3) Sepsis syndrome: * patient with early sepsis syndrome, no evidence of shock * he is responding favorably to treatment * has remained hemodynamically stable, WBC downtrending, has remained afebrile * d/c IVF * cont abx regimen as outlined above (awaiting final culture data) * will need trending lab (procalcitonin in the am and repeat ESR/CRP in 2 weeks (4) IFG (impaired fasting glucose): * will obtain A1C * dietary changes discussed (pt reports that he eats little carb and mostly protein) * will obtain an A1C * will likely need GTT as an OP if persistent (5) HTN (hypertension), benign: * controlled. continue lisinopril (6) DVT prophylaxis: * continue lovenox (7) Urinary retention: Patient is having difficulty urinating. Likely multifactorial. Will start tamsulosin and monitor. Admission and Anticipated Discharge Date Admission Date: May 28, 2021 Subjective Patient reports having loose stools and he is concerned that if he returns to nursing home, the lesion get more infected. Review of Systems Review of Systems: All systems reviewed & are unremarkable except as noted in HPI & below Physical Exam Physical Exam: General: Resting comfortably in his hospital bed. A&O X3 NAD. Cardiac: RRR without M/G/R Lungs: CTA without W/R/R Abdomen: Normoactive X4. Soft and nontender in all quadrants. Extremities: No peripheral clubbing cyanosis or edema Skin: bilateral gluteus region (just on either side of the gluteal cleft) has a clinic incision with indwelling packing to each wound. Skin is firm (from the packing) but not indurated. Nontender to touch. No purulent drainage. Surrounding skin is pink, clean and dry. Results & Data Results & Data ([facility]) Vital Signs (Past 12 Hours) Vital Signs Temp Pulse Resp BP Pulse Ox 06/01/21 07:25 36.7 C 90 16 146/79 H 96 05/31/21 22:46 37 C 78 18 121/73 94 PG Care Time/CCT Total # of Minutes Spent Total Time Spent with Patient: Total time spent is greater than 50% in coordination of care (as documented) at patient's floor/unit and/or counseling patient: Coding Level of Care Code 71345 Subseq Hosp Care Lvl 3 Diagnoses Cellulitis and abscess of buttock L02.31; L03.317 Status post incision and drainage Z98.890 Sepsis syndrome IFG (impaired fasting glucose) R73.01 HTN (hypertension), benign I10 DVT prophylaxis Z29.9 Urinary retention R33.9 Time Spent (min) 35 Comment extensive discussion with patient.
[2021-06-01] MEDS: IBUPROFEN 600 MG TAB PO PRN ×2 (13:29→21:18)
--- NOTE | 2021-06-01 15:34 | Surgery Progress Note ---
Date of Service I got a call for re-check wound, pt denies fever, less pain, normal WBC, Gram Stain Final 05/28/21-803 Gram Stain Result Few WBCs Seen Few Gram Positive Cocci Aero/Karon Cult Final 06/01/21-1135 Organism 1 Staphylococcus aureus Quantity Moderate Sens Sensitivities to Follow No Anaerobes Isolated No Anaerobes Isolated S aureus RX M.I.C. --- --------- Clindamycin S <=0.5 Daptomycin S 1 Erythromycin R >4 Oxacillin S 0.5 Tetracycline S <=4 Trimeth/Sulfa S <=0.5/9.5 Vancomycin S 2 S = SENSITIVE I = INTERMEDIATE R = RESISTANT June 01, 2021 Assessment & Plan (1) Cellulitis and abscess of buttock: pt is a 46 year-old male who presents to Er withn 4 days history bilateral gluteal pain with fever, IMP: bilateral gluteal cellulitis with abscess, plan, I recommend to do I/d bilateral gluteal abscess, D/W benefits, risks and alternatives of the surgery, the risks - infection, bleeding, sepsis, multiple organs failure, recurrence, pt understood, he agree with the surgery,He signed informed consent, I answered all questions, pre-op antibiotic, 05/28/2021 10:54AM F/U S/P I/D bilateral gluteal abscess, doing better, continue IV antibiotic, repeat CBC in morning, change wound packing tomorrow, will F/U, 05/29/2021 9:48AM F/U S/P I/D bilateral gluteal abscess, POD 2 doing better, no fever, D/C today, post op care instruction was given, F/U 2 weeks, 06/01/2021 3:36PM wound culture reviewed with pt, re-check S/P I/D bilateral gluteal abscess, pt is doing better, less pain, the wound is dry, normal wbc, right side gluteal wound, most likely cellulitis, I recommend - clinidamycin 600mg IV q8 h , and bactrim 800/160, one pill po bid will F/U Admission and Anticipated Discharge Date Admission Date: May 28, 2021 Subjective Patient reports having loose stools and he is concerned that if he returns to detention, the lesion get more infected. Physical Exam Constitutional: WD/WN, vitals as above well developed and well nourished Eyes: PERRL, conjunctivae normal, anicteric sclerae ENMT: external ear and nose normal, oropharynx normal Neck: trachea midline, no thyromegaly Respiratory: normal respiratory effort, lungs clear to auscultation normal respiratory effort Cardiovascular: RRR, no murmur, no edema Rate/Rhythm: regular rate and regular rhythm Gastrointestinal (Abdomen): normal bowel sounds, soft, nontender, no hepatosplenomegaly Percussion/Palpation: abdomen soft left side gluteal wound is dry, no redness, right side gluteal wound, some redness, and minimal drainage, most likely cellulitis, Musculoskeletal: no cyanosis or clubbing, extremities motor strength 5/5 Neurologic: awake Psychiatric: Orientation: alert and oriented x 3 Results & Data ([facility]) Vital Signs (Past 12 Hours) Vital Signs Temp Pulse Resp BP BP Pulse Ox 06/01/21 14:52 37 C 80 16 136/81 97 06/01/21 07:25 36.7 C 90 16 146/79 H 96
[2021-06-01] MEDS: CLINDAMYCIN 600 MG in DEXTROSE 5% 50 ML IV SCH (16:35)
[2021-06-01] MEDS: SULFAMETHOXAZOLE/TRIMETHOPRIM DS 800/160MG TAB PO SCH (21:14)
[2021-06-01] MEDS: ENOXAPARIN INJ 40 MG/0.4 ML SYR SQ SCH (21:14)
[2021-06-01] MEDS: ACETAMINOPHEN 325 MG TAB PO PRN (21:19)
--- NOTE | 2021-06-01 22:02 | Hospitalist Progress Note ---
Date of Service June 01, 2021 Assessment & Plan (1) Cellulitis and abscess of buttock: * Patient showing favorable response * Continue empiric antibiotic therapy with Zosyn. * Preliminary culture data showing gram-positive cocci: sensitive to zosyn, will hold vanco.. * Will await final culture data to help guide/tailor antibiotic regimen. * Suspect Bactrim likely appropriate choice but needed I&D of abscess * will hold discharge until patient no longer tachycardic, procal is also elevated. * EKG showed normal sinus. * HR has improved. * However, patient is having diarrhea, and loose stools. * Concern that his wounds may get reinfected there. * will try lactobacillus to see if this helps control his loose stools. On 06/01 Appears more indurated. Wound care recommended surgery to see lesion again. (2) Status post incision and drainage: * Wound care orders discussed with general surgery. Nursing staff to remove packing, irrigate/clean with NSS and repacked with iodoform every 48 hours. Cover with dry dressing. (3) Sepsis syndrome: * patient with early sepsis syndrome, no evidence of shock * he is responding favorably to treatment * has remained hemodynamically stable, WBC downtrending, has remained afebrile * d/c IVF * cont abx regimen as outlined above (awaiting final culture data) * will need trending lab (procalcitonin in the am and repeat ESR/CRP in 2 weeks (4) IFG (impaired fasting glucose): * will obtain A1C * dietary changes discussed (pt reports that he eats little carb and mostly protein) * will obtain an A1C * will likely need GTT as an OP if persistent (5) HTN (hypertension), benign: * controlled. continue lisinopril (6) DVT prophylaxis: * continue lovenox (7) Urinary retention: Patient is having difficulty urinating. Likely multifactorial. Will start tamsulosin and monitor. Admission and Anticipated Discharge Date Admission Date: May 28, 2021 Subjective 46 yo male reports no new symptoms. Review of Systems Review of Systems: All systems reviewed & are unremarkable except as noted in HPI & below Physical Exam Physical Exam: General: Resting comfortably in his hospital bed. A&O X3 NAD. Cardiac: RRR without M/G/R Lungs: CTA without W/R/R Abdomen: Normoactive X4. Soft and nontender in all quadrants. Extremities: No peripheral clubbing cyanosis or edema Skin: bilateral gluteus region (just on either side of the gluteal cleft) has a clinic incision with indwelling packing to each wound. Skin is firm (from the packing). Nontender to touch. No purulent drainage. Surrounding skin is pink, clean and dry. Results & Data Results & Data ([facility]) Vital Signs (Past 12 Hours) Vital Signs Temp Pulse Resp BP Pulse Ox 06/01/21 14:52 37 C 80 16 136/81 97 PG Care Time/CCT Total # of Minutes Spent Total Time Spent with Patient: Total time spent is greater than 50% in coordination of care (as documented) at patient's floor/unit and/or counseling patient: Coding Level of Care Code 98891 Subseq Hosp Care Lvl 2 Diagnoses Cellulitis and abscess of buttock L02.31; L03.317 Status post incision and drainage Z98.890 Sepsis syndrome IFG (impaired fasting glucose) R73.01 HTN (hypertension), benign I10 DVT prophylaxis Z29.9 Urinary retention R33.9 Time Spent (min) 25
[2021-06-02] MEDS: DICLOXACILLIN SODIUM 250 MG CAP PO SCH ×5 (00:02→23:17)
[2021-06-02] MEDS: CLINDAMYCIN 600 MG in DEXTROSE 5% 50 ML IV SCH ×4 (00:03→23:17)
[2021-06-02] MEDS: lisinopril 40 MG TAB PO SCH (08:31)
[2021-06-02] MEDS: LACTOBACILLUS ACIDOPHILUS 1 GM PACK PO SCH ×3 (08:32→17:57)
[2021-06-02] MEDS: SULFAMETHOXAZOLE/TRIMETHOPRIM DS 800/160MG TAB PO SCH ×2 (08:32→21:03)
[2021-06-02] MEDS: IBUPROFEN 600 MG TAB PO PRN ×2 (08:37→20:41)
[2021-06-02] MEDS: ACETAMINOPHEN 325 MG TAB PO PRN (08:37)
--- NOTE | 2021-06-02 10:17 | Surgery Progress Note ---
Date of Service doing better, less pain on bilateral gluteal area, no fever, June 02, 2021 Assessment & Plan (1) Cellulitis and abscess of buttock: pt is a 46 year-old male who presents to Er withn 4 days history bilateral gluteal pain with fever, IMP: bilateral gluteal cellulitis with abscess, plan, I recommend to do I/d bilateral gluteal abscess, D/W benefits, risks and alternatives of the surgery, the risks - infection, bleeding, sepsis, multiple organs failure, recurrence, pt understood, he agree with the surgery,He signed informed consent, I answered all questions, pre-op antibiotic, 05/28/2021 10:54AM F/U S/P I/D bilateral gluteal abscess, doing better, continue IV antibiotic, repeat CBC in morning, change wound packing tomorrow, will F/U, 05/29/2021 9:48AM F/U S/P I/D bilateral gluteal abscess, POD 2 doing better, no fever, D/C today, post op care instruction was given, F/U 2 weeks, 06/01/2021 3:36PM wound culture reviewed with pt, re-check S/P I/D bilateral gluteal abscess, pt is doing better, less pain, the wound is dry, normal wbc, right side gluteal wound, most likely cellulitis, I recommend - clinidamycin 600mg IV q8 h , and bactrim 800/160, one pill po bid will F/U 06/02/2021 10: 15AM re-check S/P I/D bilateral gluteal abscess, pt is doing better, less pain, the wound is dry, normal wbc, no surgery indication now, right side gluteal wound, most likely cellulitis, continue iv antibiotic treatment, will F/U, action finisher surgeon cover weekend and holiday, Thanks, Admission and Anticipated Discharge Date Admission Date: May 28, 2021 Subjective 46 yo male reports no new symptoms. Physical Exam Constitutional: WD/WN, vitals as above well developed and well nourished Eyes: PERRL, conjunctivae normal, anicteric sclerae ENMT: external ear and nose normal, oropharynx normal Neck: trachea midline, no thyromegaly Respiratory: normal respiratory effort, lungs clear to auscultation normal respiratory effort Cardiovascular: RRR, no murmur, no edema Rate/Rhythm: regular rate and regular rhythm Gastrointestinal (Abdomen): normal bowel sounds, soft, nontender, no hepatosplenomegaly Percussion/Palpation: abdomen soft the wound is dry, less redness, mild tenderness, Musculoskeletal: no cyanosis or clubbing, extremities motor strength 5/5 Neurologic: awake Psychiatric: Orientation: alert and oriented x 3 Results & Data ([facility]) Vital Signs (Past 12 Hours) Vital Signs Temp Pulse Resp BP BP Pulse Ox Pulse Ox 06/02/21 08:31 65 127/76 06/02/21 06:59 36.7 C 82 16 137/78 97 06/01/21 22:37 37.2 C 71 18 127/68 96 06/01/21 22:20 96
[2021-06-02] MEDS: ENOXAPARIN INJ 40 MG/0.4 ML SYR SQ SCH (20:36)
[2021-06-03] MEDS: DICLOXACILLIN SODIUM 250 MG CAP PO SCH ×4 (05:50→23:15)
--- NOTE | 2021-06-03 06:01 | Surgery Progress Note ---
Date of Service June 03, 2021 Assessment & Plan (1) Status post incision and drainage: Patient is status post incision and drainage of gluteal abscess on 05/27/2021 Continue daily dressing changes Operative cultures reviewed and have grown methicillin sensitive staph aureus Continue antibiotics--patient is currently receiving clindamycin as well as Bactrim: Operative organisms are sensitive to both these antibiotics Following discharge patient can follow-up with his surgeon, Dr. Mace Admission and Anticipated Discharge Date Admission Date: May 28, 2021 Supervising Physician Co-Signing Physician Notes pnt s&e, agree with above. s/p I&D of bilateral gluteal abscesses. marble machine tender near right area. on exam afvss, bilateral gluteal wounds healing with no undrained areas palpable. cellulitis improving. continue abx, local wound care. surgery will sign off, call with questions or concerns. Subjective Patient denies any fevers, shakes, chills. He denies any nausea or vomiting. He notes minimal pain at his surgical site and does not report any other concerns. Physical Exam Physical Exam: Dressing from patient's I&D of gluteal abscess is clean, dry, and intact. No crepitus is noted in the soft tissue. Results & Data ([facility]) Vital Signs (Past 12 Hours) Vital Signs Temp Pulse Resp BP Pulse Ox 06/03/21 00:02 36.7 C 59 L 16 107/68 95 PG Care Time/CCT Total # of Minutes Spent Total Time Spent with Patient: Total time spent is greater than 50% in coordination of care (as documented) at patient's floor/unit and/or counseling patient: Coding Level of Care Code None Diagnoses Status post incision and drainage Z98.890
[2021-06-03] MEDS: LACTOBACILLUS ACIDOPHILUS 1 GM PACK PO SCH ×3 (08:56→17:12)
[2021-06-03] MEDS: lisinopril 40 MG TAB PO SCH (08:56)
[2021-06-03] MEDS: SULFAMETHOXAZOLE/TRIMETHOPRIM DS 800/160MG TAB PO SCH ×2 (08:57→20:52)
[2021-06-03] MEDS: CLINDAMYCIN 600 MG in DEXTROSE 5% 50 ML IV SCH ×3 (09:00→23:15)
[2021-06-03] MEDS: IBUPROFEN 600 MG TAB PO PRN ×2 (09:00→19:26)
--- NOTE | 2021-06-03 16:32 | Hospitalist Progress Note ---
Date of Service June 02, 2021 Assessment & Plan (1) Cellulitis and abscess of buttock: * Patient showing favorable response * Continue empiric antibiotic therapy with Zosyn. * Preliminary culture data showing gram-positive cocci: sensitive to zosyn, will hold vanco.. * Will await final culture data to help guide/tailor antibiotic regimen. * Suspect Bactrim likely appropriate choice but needed I&D of abscess * will hold discharge until patient no longer tachycardic, procal is also elevated. * EKG showed normal sinus. * HR has improved. * However, patient is having diarrhea, and loose stools. * Concern that his wounds may get reinfected there. * will try lactobacillus to see if this helps control his loose stools. On 06/02 Appreciate input from Gen surgery. will continue antibiotics Now on clindamycin. (2) Status post incision and drainage: * Wound care orders discussed with general surgery. Nursing staff to remove packing, irrigate/clean with NSS and repacked with iodoform every 48 hours. Cover with dry dressing. (3) Sepsis syndrome: * patient with early sepsis syndrome, no evidence of shock * he is responding favorably to treatment * has remained hemodynamically stable, WBC downtrending, has remained afebrile * d/c IVF * cont abx regimen as outlined above (awaiting final culture data) * will need trending lab (procalcitonin in the am and repeat ESR/CRP in 2 weeks (4) IFG (impaired fasting glucose): * will obtain A1C * dietary changes discussed (pt reports that he eats little carb and mostly protein) * will obtain an A1C * will likely need GTT as an OP if persistent (5) HTN (hypertension), benign: * controlled. continue lisinopril (6) DVT prophylaxis: * continue lovenox (7) Urinary retention: Patient is having difficulty urinating. Likely multifactorial. Will start tamsulosin and monitor. Admission and Anticipated Discharge Date Admission Date: May 28, 2021 Subjective Patient reports doing well. He has pain in his right buttock Review of Systems Review of Systems: All systems reviewed & are unremarkable except as noted in HPI & below Physical Exam Physical Exam: General: Resting comfortably in his hospital bed. A&O X3 NAD. Cardiac: RRR without M/G/R Lungs: CTA without W/R/R Abdomen: Normoactive X4. Soft and nontender in all quadrants. Extremities: No peripheral clubbing cyanosis or edema Skin: bilateral gluteus region (just on either side of the gluteal cleft) has a clinic incision with indwelling packing to each wound. Skin is firm (from the packing). Nontender to touch. No purulent drainage. Surrounding skin is pink, clean and dry. Induration noted on right lesion. Results & Data Results & Data ([facility]) Vital Signs (Past 12 Hours) Vital Signs Temp Pulse Resp BP Pulse Ox 06/03/21 16:04 36.9 C 69 18 113/65 97 06/03/21 08:34 36.9 C 63 18 114/65 95 PG Care Time/CCT Total # of Minutes Spent Total Time Spent with Patient: Total time spent is greater than 50% in c oordination of care (as documented) at patient's floor/unit and/or counseling patient: Coding Level of Care Code 08704 Subseq Hosp Care Lvl 2 Diagnoses Cellulitis and abscess of buttock L02.31; L03.317 Status post incision and drainage Z98.890 Sepsis syndrome IFG (impaired fasting glucose) R73.01 HTN (hypertension), benign I10 DVT prophylaxis Z29.9 Urinary retention R33.9 Time Spent (min) 25
[2021-06-03] MEDS: ENOXAPARIN INJ 40 MG/0.4 ML SYR SQ SCH (20:52)
--- NOTE | 2021-06-03 22:08 | Hospitalist Progress Note ---
Date of Service June 03, 2021 Assessment & Plan (1) Cellulitis and abscess of buttock: * Patient showing favorable response * Continue empiric antibiotic therapy with Zosyn. * Preliminary culture data showing gram-positive cocci: sensitive to zosyn, will hold vanco.. * Will await final culture data to help guide/tailor antibiotic regimen. * Suspect Bactrim likely appropriate choice but needed I&D of abscess * will hold discharge until patient no longer tachycardic, procal is also elevated. * EKG showed normal sinus. * HR has improved. * However, patient is having diarrhea, and loose stools. * Concern that his wounds may get reinfected there. * will try lactobacillus to see if this helps control his loose stools. On 06/03 Appreciate input from Gen surgery. will continue antibiotics Now on clindamycin. Patient has been showering, and explained to patient that it is better to limit showers at this point to not get his dressing wet as this could promote more infection. (2) Status post incision and drainage: * Wound care orders discussed with general surgery. Nursing staff to remove packing, irrigate/clean with NSS and repacked with iodoform every 48 hours. Cover with dry dressing. (3) Sepsis syndrome: * patient with early sepsis syndrome, no evidence of shock * he is responding favorably to treatment * has remained hemodynamically stable, WBC downtrending, has remained afebrile * d/c IVF * cont abx regimen as outlined above (awaiting final culture data) * will need trending lab (procalcitonin in the am and repeat ESR/CRP in 2 weeks (4) IFG (impaired fasting glucose): * will obtain A1C * dietary changes discussed (pt reports that he eats little carb and mostly protein) * will obtain an A1C * will likely need GTT as an OP if persistent (5) HTN (hypertension), benign: * controlled. continue lisinopril (6) DVT prophylaxis: * continue lovenox (7) Urinary retention: Patient is having difficulty urinating. Likely multifactorial. Will start tamsulosin and monitor. Admission and Anticipated Discharge Date Admission Date: May 28, 2021 Subjective 46 yo male reports no new symptoms. Review of Systems Review of Systems: All systems reviewed & are unremarkable except as noted in HPI & below Physical Exam Physical Exam: General: Resting comfortably in his hospital bed. A&O X3 NAD. Cardiac: RRR without M/G/R Lungs: CTA without W/R/R Abdomen: Normoactive X4. Soft and nontender in all quadrants. Extremities: No peripheral clubbing cyanosis or edema Skin: bilateral gluteus region (just on either side of the gluteal cleft) has a clinic incision with indwelling packing to each wound. Skin is firm (from the packing). Nontender to touch. No purulent drainage. Surrounding skin is pink, clean and dry. Induration noted on right lesion. Results & Data Results & Data ([facility]) Vital Signs (Past 12 Hours) Vital Signs Temp Pulse Resp BP Pulse Ox 06/03/21 16:04 36.9 C 69 18 113/65 97 PG Care Time/CCT Total # of Minutes Spent Total Time Spent with Patient: Total time spent is greater than 50% in coordination of care (as documented) at patient's floor/unit and/or counseling patient: Coding Level of Care Code 03063 Subseq Hosp Care Lvl 2 Diagnoses Cellulitis and abscess of buttock L02.31; L03.317 Status post incision and drainage Z98.890 Sepsis syndrome IFG (impaired fasting glucose) R73.01 HTN (hypertension), benign I10 DVT prophylaxis Z29.9 Urinary retention R33.9 Time Spent (min) 25
[2021-06-03] MEDS: ACETAMINOPHEN 325 MG TAB PO PRN (23:17)
[2021-06-04] MEDS: DICLOXACILLIN SODIUM 250 MG CAP PO SCH ×4 (05:16→23:29)
[2021-06-04] MEDS: CLINDAMYCIN 600 MG in DEXTROSE 5% 50 ML IV SCH ×3 (09:49→23:29)
[2021-06-04] MEDS: SULFAMETHOXAZOLE/TRIMETHOPRIM DS 800/160MG TAB PO SCH ×2 (09:50→20:03)
[2021-06-04] MEDS: LACTOBACILLUS ACIDOPHILUS 1 GM PACK PO SCH ×3 (09:50→17:30)
[2021-06-04] MEDS: lisinopril 40 MG TAB PO SCH (09:50)
[2021-06-04] MEDS: ACETAMINOPHEN 325 MG TAB PO PRN (09:54)
[2021-06-04] MEDS ORDERED: guaiFENesin SUGAR FREE 200 MG/10 ML UDC PO PRN (19:17)
[2021-06-04] MEDS: IBUPROFEN 600 MG TAB PO PRN (19:45)
[2021-06-04] MEDS: ENOXAPARIN INJ 40 MG/0.4 ML SYR SQ SCH (20:03)
--- NOTE | 2021-06-04 23:46 | Hospitalist Progress Note ---
Date of Service June 04, 2021 Assessment & Plan (1) Cellulitis and abscess of buttock: * Possible Sepsis in setting of bilateral gluteal abscesses * Given how patienthad Tachycardia, leukocytosis, * Patient showing favorable response initially to zosyn, however this required to be switched to clindamycin on 06/01 * Patient was having another indurated lesion on his right, however it finally appears to be improving. * EKG showed normal sinus. * HR has improved. * Plan for discharge on 06/06 if surgery clears him. Patient has been showering, and explained to patient that it is better to limit showers at this point to not get his dressing wet as this could promote more inf ection. (06/03) (2) Status post incision and drainage: * Wound care orders discussed with general surgery. Nursing staff to remove packing, irrigate/clean with NSS and repacked with iodoform every 48 hours. Cover with dry dressing. (3) Sepsis syndrome: * patient with early sepsis syndrome, no evidence of shock * he is responding favorably to treatment * has remained hemodynamically stable, WBC downtrending, has remained afebrile * d/c IVF * cont abx regimen as outlined above (awaiting final culture data) * will need trending lab (procalcitonin in the am and repeat ESR/CRP in 2 weeks (4) IFG (impaired fasting glucose): * will obtain A1C * dietary changes discussed (pt reports that he eats little carb and mostly protein) * will obtain an A1C * will likely need GTT as an OP if persistent (5) HTN (hypertension), benign: * controlled. continue lisinopril (6) DVT prophylaxis: * continue lovenox (7) Urinary retention: Patient is having difficulty urinating. Likely multifactorial. Will start tamsulosin and monitor. voiding trial in 2 weeks, juan placed. Updated his Admission and Anticipated Discharge Date Admission Date: May 28, 2021 Subjective Patient reports doing well. He feels his pain has improved Review of Systems Review of Systems: All systems reviewed & are unremarkable except as noted in HPI & below Physical Exam Physical Exam: General: Resting comfortably in his hospital bed. A&O X3 NAD. Cardiac: RRR without M/G/R Lungs: CTA without W/R/R Abdomen: Normoactive X4. Soft and nontender in all quadrants. Extremities: No peripheral clubbing cyanosis or edema Skin: bilateral gluteus region (just on either side of the gluteal cleft) has a clinic incision with indwelling packing to each wound. Skin is firm (from the packing). Nontender to touch. No purulent drainage. Surrounding skin is pink, clean and dry. Induration noted on right lesion. Results & Data Results & Data ([place]) Vital Signs (Past 12 Hours) Vital Signs Temp Pulse Resp BP Pulse Ox 06/04/21 22:36 36.9 C 75 16 99/67 L 95 06/04/21 18:13 37.3 C 84 18 128/77 97 PG Care Time/CCT Total # of Minutes Spent Total Time Spent with Patient: Total time spent is greater than 50% in coordination of care (as documented) at patient's floor/unit and/or counseling patient: Coding Level of Care Code 06307 Subseq Hosp Care Lvl 2 Diagnoses Cellulitis and abscess of buttock L02.31; L03.317 Status post incision and drainage Z98.890 Sepsis syndrome IFG (impaired fasting glucose) R73.01 HTN (hypertension), benign I10 DVT prophylaxis Z29.9 Urinary retention R33.9
[2021-06-05] MEDS: DICLOXACILLIN SODIUM 250 MG CAP PO SCH ×2 (05:06→11:50)
[2021-06-05 07:58] LABS: Basophils # (auto) 0.04 K/uL (0-0.2); Basophils % (auto) 0.8 %; Eosinophils # (auto) 0.07 K/uL (0-0.5); Eosinophils % (auto) 1.4 %; Hematocrit (blood only) 41.3 % (42-52); Hemoglobin 13.9 g/dL (14.0-18.0); Immature Granulocytes # (auto) 0.09 K/uL (0.00-0.02); Immature Granulocytes % (auto) 1.8 %; Lymphocytes # (auto) 1.35 K/uL (1.2-3.4); Lymphocytes % (auto) 27.3 %; Mean Corpuscular Hemoglobin 28.8 pg (25-34); Mean Corpuscular Hgb Conc 33.7 g/dL (32-36); Mean Corpuscular Volume 85.5 fL (80-100); Mean Platelet Volume 9.3 fL (7.4-10.4); Monocytes # (auto) 0.42 K/uL (0.11-0.59); Monocytes % (auto) 8.5 %; Neutrophils # (auto) 2.97 K/uL (1.4-6.5); Neutrophils % (auto) 60.2 %; Platelet Count 423 K/uL (130-400); RDW Coefficient of Variation 13.6 % (11.5-14.5); RDW Standard Deviation 42.4 fL (36.4-46.3); Red Blood Count 4.83 M/uL (4.7-6.1); White Blood Count 4.94 K/uL (4.8-10.8)
[2021-06-05 08:29] LABS: BUN Creatinine Ratio 16.1 (10-20); C Reactive Protein 1.18 mg/dl (0-0.29); Calcium 9.5 mg/dl (8.5-10.1); Creatinine Clr Calc Pharmacy 105.3 ml/min; Est GFR (African American) 106.6 ml/min; Est GFR (Non-African American) 91.9 ml/min; Potassium 4.8 mmol/L (3.5-5.1)
[2021-06-05] MEDS: lisinopril 40 MG TAB PO SCH (09:22)
[2021-06-05] MEDS: CLINDAMYCIN 600 MG in DEXTROSE 5% 50 ML IV SCH ×2 (09:22→16:46)
[2021-06-05] MEDS: LACTOBACILLUS ACIDOPHILUS 1 GM PACK PO SCH ×3 (09:22→16:46)
[2021-06-05] MEDS: SULFAMETHOXAZOLE/TRIMETHOPRIM DS 800/160MG TAB PO SCH ×2 (09:22→22:01)
[2021-06-05] MEDS ORDERED: TAMSULOSIN HCL 0.4 MG CAP PO ONE (13:15)
--- NOTE | 2021-06-05 19:45 | Hospitalist Progress Note ---
Date of Service June 05, 2021 Assessment & Plan (1) Cellulitis and abscess of buttock: Prior sepsis now resolved Source bilateral gluteal abscesses Patient showing favorable response initially to zosyn, however this required to be switched to clindamycin + Bactrim based on sensitivities with BALTA 2 to oxacillin on 06/01 Patient with additional lesion on his right, however it finally appears to be improving. * Plan for discharge on 06/06 pending surgical review on this date. (2) Status post incision and drainage: * Wound care orders discussed with general surgery. Nursing staff to remove packing, irrigate/clean with NSS and repacked with iodoform every 48 hours. Cover with dry dressing. (3) Sepsis syndrome: Now resolved Procalcitonin now negative, CRP improving (4) IFG (impaired fasting glucose): HbA1C 5.3 (5) HTN (hypertension), benign: * controlled. continue lisinopril (reduced dose due to starting tamsulosin) (6) Urinary retention: Start tamsulosin Remove juan cath @ midnight for trial without catheter per patient request (7) DVT prophylaxis: * continue lovenox 40mg SQ daily Admission and Anticipated Discharge Date Admission Date: May 28, 2021 Subjective No fever or chills. Lump on right buttocks not getting larger. Having diarrhea but not watery. Review of Systems Review of Systems: All systems reviewed & are unremarkable except as noted in HPI & below Physical Exam Constitutional: WD/WN, vitals as above Respiratory: normal respiratory effort, lungs clear to auscultation Cardiovascular: RRR, no murmur, no edema Musculoskeletal: Extremities: extremities normal to inspection; no cyanosis and no clubbing Skin: + erythema (2cm xircular mild erythema surrounding induration right buttocks) No cellulitis surrounding surgical wound packing Neurologic: moves all extremities and awake; no focal motor deficits Psychiatric: A+Ox3, euthymic affect Lymphatic: no lymphedema Results & Data Results & Data ([facility]) Vital Signs (Past 12 Hours) Vital Signs Temp Pulse Resp BP Pulse Ox 06/05/21 08:23 36.9 C 90 18 115/73 96 PG Care Time/CCT Total # of Minutes Spent Total Time Spent with Patient: Total time spent is greater than 50% in coordination of care (as documented) at patient's floor/unit and/or counseling patient: Coding Level of Care Code 00886 Subseq Hosp Care Lvl 2 Diagnoses Cellulitis and abscess of buttock L02.31; L03.317 Status post incision and drainage Z98.890 Sepsis syndrome IFG (impaired fasting glucose) R73.01 HTN (hypertension), benign I10 Urinary retention R33.9 DVT prophylaxis Z29.9
[2021-06-05] MEDS: ENOXAPARIN INJ 40 MG/0.4 ML SYR SQ SCH (22:00)
[2021-06-06] MEDS: CLINDAMYCIN 600 MG in DEXTROSE 5% 50 ML IV SCH ×2 (01:05→09:57)
[2021-06-06] MEDS ORDERED: TAMSULOSIN HCL 0.4 MG CAP PO SCH (09:00)
[2021-06-06] MEDS ORDERED: lisinopril 20 MG TAB PO SCH (09:00)
--- NOTE | 2021-06-06 09:09 | Surgery Progress Note ---
Date of Service pt is doing fine, no more pain, minimal wound drainage, no fever, wound culture reviewed with pt, June 06, 2021 Assessment & Plan (1) Cellulitis and abscess of buttock: pt is a 46 year-old male who presents to Er withn 4 days history bilateral gluteal pain with fever, IMP: bilateral gluteal cellulitis with abscess, plan, I recommend to do I/d bilateral gluteal abscess, D/W benefits, risks and alternatives of the surgery, the risks - infection, bleeding, sepsis, multiple organs failure, recurrence, pt understood, he agree with the surgery,He signed informed consent, I answered all questions, pre-op antibiotic, 05/28/2021 10:54AM F/U S/P I/D bilateral gluteal abscess, doing better, continue IV antibiotic, repeat CBC in morning, change wound packing tomorrow, will F/U, 05/29/2021 9:48AM F/U S/P I/D bilateral gluteal abscess, POD 2 doing better, no fever, D/C today, post op care instruction was given, F/U 2 weeks, 06/01/2021 3:36PM wound culture reviewed with pt, re-check S/P I/D bilateral gluteal abscess, pt is doing better, less pain, the wound is dry, normal wbc, right side gluteal wound, most likely cellulitis, I recommend - clinidamycin 600mg IV q8 h , and bactrim 800/160, one pill po bid will F/U 06/02/2021 10: 15AM re-check S/P I/D bilateral gluteal abscess, pt is doing better, less pain, the wound is dry, normal wbc, no surgery indication now, right side gluteal wound, most likely cellulitis, continue iv antibiotic treatment, will F/U, 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 s/p I&D of bilateral gluteal abscesses. 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 on exam afvss, bilateral gluteal wounds healing with no undrained areas palpable. cellulitis improving. continue abx, local wound care. surgery will sign off, call with questions or concerns. Subjective No fever or chills. Lump on right buttocks not getting larger. Having diarrhea but not watery. Physical Exam Constitutional: WD/WN, vitals as above well developed and well nourished Eyes: PERRL, conjunctivae normal, anicteric sclerae ENMT: external ear and nose normal, oropharynx normal Neck: trachea midline, no thyromegaly Respiratory: normal respiratory effort, lungs clear to auscultation normal respiratory effort Cardiovascular: RRR, no murmur, no edema Rate/Rhythm: regular rate and regular rhythm Gastrointestinal (Abdomen): normal bowel sounds, soft, nontender, no hepatosplenomegaly Percussion/Palpation: abdomen soft minimal wound drainage, no redness, no tenderness, Musculoskeletal: no cyanosis or clubbing, extremities motor strength 5/5 Neurologic: awake Psychiatric: Orientation: alert and oriented x 3 Results & Data ([facility]) Vital Signs (Past 12 Hours) Vital Signs Temp Pulse Resp BP Pulse Ox 06/06/21 07:27 36.9 C 57 L 16 113/68 96 06/05/21 22:27 36.9 C 79 16 113/70 98
[2021-06-06] MEDS: SULFAMETHOXAZOLE/TRIMETHOPRIM DS 800/160MG TAB PO SCH (09:57)
[2021-06-06] MEDS: LACTOBACILLUS ACIDOPHILUS 1 GM PACK PO SCH (09:58)
--- NOTE | 2021-06-06 11:07 | Discharge Summary ---
Date of Service June 06, 2021 Admission HPI Per Admitting Provider This patient is a 46-year-old male with a history of hypertension who presents to the ER from the [facility] for evaluation of bilateral gluteal abscesses. He reports first noticing pimple-like areas on the bilateral buttocks 4 days ago, but then he started having fevers and chills for the last 2 days and significantly worsening pain in the buttocks. He also felt like the pain was spreading up to his right kidney and he was worried about sepsis. He reports nausea and vomiting all day yesterday and was not able to keep anything down. He has not had a bowel movement in 2 days and no diarrhea. He reports his urine output dropped off in the last 24 hours as well. He was seen at the [facility] and started on Bactrim but had not yet had an incision and drainage. He was having moderate to severe pain. He has noticed drainage from the right gluteal abscess and minimal drainage from the left. He denies rectal bleeding or pain. He has no personal history of MRSA or previous skin infections/abscesses. In the ER, he was found to have fever, leukocytosis, elevated CRP, mild hyponatremia, and procalcitonin elevated at 2.61. Attempts were made to I&D the abscesses in the ER and a small amount of pus was drained from the left gluteal abscess. He was also noted by the ER physician to have significant surrounding cellulitis. A pelvic CT was performed and showed infiltration of the fat involving both gluteal folds with overlying skin thickening consistent with bilateral gluteal cellulitis right greater than left, also with a 4 mm skin ulceration involving the right gluteal fold, but no drainable abscess noted. His appendix was noted to be normal and no evidence of acute diverticulitis. In the ER, he was given IV ceftriaxone and IV vancomycin as well as oxycodone as well as morphine for pain and Zofran for nausea. He was also given 1 L of normal saline. His blood pressure was normal but he was mildly tachycardic. He will be admitted for sepsis secondary to gluteal abscesses with cellulitis. Admission Exam Per Admitting Provider Constitutional: WD/WN, vitals as above Eyes: PERRL, conjunctivae normal, anicteric sclerae ENMT: external ear and nose normal, oropharynx normal Neck: trachea midline, no thyromegaly Respiratory: normal respiratory effort, lungs clear to auscultation Cardiovascular: RRR, no murmur, no edema Chest (Breasts): Chest: normal inspection of chest Gastrointestinal (Abdomen): normal bowel sounds, soft, nontender, no hepatosplenomegaly Musculoskeletal: Extremities: extremities normal to inspection; no cyanosis and no clubbing Skin: Right medial gluteus with large area of erythema and significant induration approximately 8 cm in diameter with central incision now open and draining purulent material and tender to the touch with warmth. Left medial gluteus also with large area of significant induration with incised open area draining blood and pus, with another small 2 mm white pustule more caudally, also tender to the touch Neurologic: moves all extremities and awake; no focal motor deficits Psychiatric: A+Ox3, euthymic affect Lymphatic: no lymphedema Principal Diagnosis Bilateral gluteal abscesses S/P Incision and drainage bilateral gluteal abscess Discharge Exam Constitutional WD/WN, vitals as above Respiratory normal respiratory effort, lungs clear to auscultation Cardiovascular RRR, no murmur, no edema Musculoskeletal Extremities: extremities normal to inspection; no cyanosis and no clubbing Neurologic moves all extremities and awake Psychiatric A+Ox3, euthymic affect Discharge Data Allergies Allergy/AdvReac Type Severity Reaction Status Date / Time No Known Allergies Allergy Unverified 05/27/21 12:10 Consultations 05/27/21 15:51 ED Decision to Admit Stat 05/27/21 16:19 Consult General Surgery Routine Procedures Performed Operation Date: 05/27/21 18:45 Actual Procedures p Incision and drainage bilateral gluteal cellulitis with abscess(Bilateral) - Obinna Mace MD Ordered Studies 05/27/21 13:41 CT pelvis w/IV con only Stat IMPRESSION: 1. Infiltration of the fat involving both gluteal fold with overlying skin thickening. The findings are consistent with a bilateral gluteal cellulitis right more severe than left 2. 4 mm skin ulceration involving the right gluteal fold 3. No evidence of drainable abscess 4. Normal appendix. No evidence of acute diverticulitis. Hospital Course (1) Cellulitis and abscess of buttock: Vaughn Puente is a 46 year old male admitted to [facility] from May 27 to June 06, 2021 due to bilateral gluteal abscesses. Wound and surgical cultures subsequently positive for MSSA, blood cultures were negative. He underwent incision and drainage on May 28, 2021. Initially treated with IV Zosyn however once wound cultures returned he was switched to IV clindamycin and PO Bactrim. Per surgical recommendations he should remain on Bactrim as prescribed below for a further 10 days. He was also noted to have urinary retention. Herring catheter was removed successfully prior to discharge with post void residual 0ml on bladder scan. Recommend continuing tamsulosin as prescribed below for a further 14 days but likely can be stopped after this. Lisinopril has been decreased to 20mg PO daily due to mildly low blood pressure. Consider increase back to 40mg after infection clears if needed for hypertension. Follow up the patient in [address] Mace (2) Status post incision and drainage: (3) Sepsis syndrome: (4) IFG (impaired fasting glucose): (5) HTN (hypertension), benign: (6) Urinary retention: (7) DVT prophylaxis: Total Time Total Time Spent Total Time Spent (In Minutes): 35 Total Time Includes: Examination of the Patient, Discharge Planning, Medication Reconciliation and Communication With Other Providers Discharge Plan Discharge Items Patient Disposition: [facility] Reason For Visit: GLUTEAL ABSCESS,CELLULITIS,SEPSIS Discharge Diagnosis: Bilateral gluteal abscesses S/P Incision and drainage bilateral gluteal abscess Condition on Discharge: Good Activity: As commented below Lifting: Gradually increase as tolerated Bathing: May shower/bathe in 3 days Sexual Activity: When tolerated Exercise/Sports: Rest today Non-emergency contact: Surgeon Call non-emergency contact if: you have any medication questions, your symptoms worsen, your pain is not controlled and your pain is worsening Follow-up/Referrals: Zane PERALTA [Primary Care Provider] - (follow up DR. Mace 2 weeks, Agree-I have documented within the medical record.) Obinna Mace MD [Physician] - (follow up Dr. Mace 2 weeks, Agree-I have documented within the medical record.) Diet: Regular Addtl Attending Provider Instructions: Vaughn Puente is a 46 year old male admitted to [facility] from May 27 to June 06, 2021 due to bilateral gluteal abscesses. Wound and surgical cultures subsequently positive for MSSA, blood cultures were negative. He underwent incision and drainage on May 28, 2021. Initially treated with IV Zosyn however once wound cultures returned he was switched to IV clindamycin and PO Bactrim. Per surgical recommendations he should remain on Bactrim as prescribed below for a further 10 days. He was also noted to have urinary retention. Herring catheter was removed successfully prior to discharge with post void residual 0ml on bladder scan. Recommend continuing tamsulosin as prescribed below for a further 14 days but l ikely can be stopped after this. Lisinopril has been decreased to 20mg PO daily due to mildly low blood pressure. Consider increase back to 40mg after infection clears if needed for hypertension. Follow up the patient in [address] Rodri Paiz Fishing Hand Provider Instructions: change packing with 1/4 inchs kerlex once a day, bactrim 800/160 one pill po bid x 10 days Pending Studies at Discharge: Yes Studies:: wound culture Stand-Alone Forms: [facility] Skilled Items Patient informed of condition?: Yes Discharge Level of Care: Skilled Communicable Disease: No Discharge Prognosis: Improving Lines: None Urinary Catheter: No Medications and DC Order Prescriptions: New acetaminophen 325 mg Tablet 650 mg PO Q4H PRN (Reason: pain) Qty: 30 RF: 0 tamsulosin 0.4 mg Capsule 0.4 mg PO QAM 14 Days Qty: 14 RF: 0 Continued ibuprofen 600 mg Tablet 600 mg PO TID RF: 0 sulfamethoxazole-trimethoprim [Bactrim DS] 800-160 mg Tablet 1 tab PO BID 10 Days Qty: 20 RF: 0 Changed lisinopril 40 mg Tablet 20 mg PO QAM Qty: 0 RF: 0 Discharge Orders: Discharge Order (Routine); Ordered 06/06/21 Ordered By: Jef Greer Admission Data Admit Date/Time: 05/28/21 12:08 Attending Provider: Jef Greer Admit Provider: Britney Leija Primary Care Provider: Zane PERALTA Other Providers: Obinna Mace ; Britney Leija Other Interventions: Discharge Summary Assessment (RN) Last Done: 06/06/21 11:22 Coding Level of Care Code D/C Day Management >30 mins Diagnoses Cellulitis and abscess of buttock L02.31; L03.317 Status post incision and drainage Z98.890 Sepsis syndrome IFG (impaired fasting glucose) R73.01 HTN (hypertension), benign I10 Urinary retention R33.9 DVT prophylaxis Z29.9
--- NOTE | 2021-06-15 11:51 | Coding Query ---
CODING QUERY To promote full compliance with coding requirements relating to patient care, provider participation is requested in all cases of boat deckhand uncertainty. Please assist us with the question(s) below: Coding Question(s): The H&P documents, "He will be admitted for sepsis secondary to gluteal abscesses with cellulitis" and the 06/04 Progress Note documents, "Possible Sepsis in setting of bilateral gluteal abscesses Given how patienthad Tachycardia, leukocytosis" and the 06/05 Progress Note documents, "Cellulitis and abscess of buttock: Prior sepsis now resolved Source bilateral gluteal abscesses", then the Discharge Summary documents Sepsis Syndrome and Sepsis Syndrome cannot be coded as Sepsis. It is not clear if there was possible Sepsis or if Sepsis was ruled out. Please specify below, in your clinical opinion. (X) Possible Sepsis ( ) Sepsis is Ruled-Out ( ) Other: Please Specify Physician's Response(s): Thank you Sandy Pollock Principal Diagnosis: "that condition established after study, to be chiefly responsible for occasioning the admission of the patient to the hospital for care." Co-Existing Principal Diagnosis: "when two or more diagnoses equally meet the criteria for principal diagnosis as determined by the circumstances of admission, diagnostic work up, and/or therapy provided, and the Alphabetic Index, Tabular List, or another coding guideline does not provide sequencing direction, any one of the diagnoses may be sequenced first." "When the physician has documented what appears to be a current diagnosis in the body of the record, but has not included the diagnosis in the final diagnostic statement, the physician should be asked whether the diagnosis should be added." (Source [facility]oding [facility] 2 QTR90. p3-4) SHUBHAMD
== END 2021-06-06 13:24 | DRG 854 ==
LOC: ED 11:38 → OR 18:45 → 3N 18:45 → SUATTDRO 18:46